=== PATIENT | female | born 1935 | race Caucasian/White ===

== ENCOUNTER → 2016-06-11 | Outpatient (CLI) | payer MEDICARE, BC ==
--- NOTE | 2016-06-14 09:18 | MM ---
Reason for exam: screening (asymptomatic). Last mammogram was performed 1 year ago. History: Patient is postmenopausal. Took estrogen for 18 years beginning at age 49. Physical Findings: A clinical breast exam by your physician is recommended on an annual basis and results should be correlated with mammographic findings. MG 3D Screening Mammo W/Cad Bilateral CC and MLO view(s) were taken. Prior study comparison: June 10, 2015, bilateral MG screening mammo w CAD. May 20, 2014, bilateral MG screening mammo w CAD. There are scattered fibroglandular densities. Benign calcifications. There is no discrete abnormality. No significant changes when compared with prior studies. ASSESSMENT: Benign, BI-RAD 2 RECOMMENDATION: Routine screening mammogram of both breasts in 1 year.
== END | disposition home or self-care (01) ==
LOC: RADMAMWWP 09:43
PROVIDERS: ATTEND Family Medicine
DX: Z12.31 Encounter for screening mammogram for malignant neoplasm of breast (principal)
CPT/HCPCS: 77063; G0202

== ENCOUNTER 2016-07-23 04:47 | Inpatient (IN) | payer MEDICARE, BC ==
--- NOTE | 2016-07-23 05:12 | ED ---
Abdominal Pain HPI - General Source: patient, RN notes reviewed Mode of arrival: wheelchair Limitations: no limitations - History of Present Illness MD Complaint: abdominal pain, other <Pascual Lange - Last Filed: 07/23/16 05:10> <Kaleb Ceja - Last Filed: 07/23/16 08:57> - General Chief Complaint: Abdominal Pain Stated Complaint: GI Bleed Time Seen by Provider: 07/23/16 05:00 - History of Present Illness Initial Comments: This is a 81-year-old female who states she had the onset at 12 midnight of crampy lower abdominal pain with some diarrhea she states that later however she started developing bright red blood per rectum. She states the cramps are 7 -8 tenths a history of hysterectomy cardiac disease with stents she does take Plavix and aspirin./10 severity she has some lightheadedness and dizziness associated with it. She also has some nausea. She has a history of diverticulitis she also some bleeding many years ago. (Pascual Lange) - Related Data Home Medications Medication Instructions Recorded Confirmed Brinzolamide [Azopt 1% Ophth Susp] 1 drop BOTH EYES BID 05/24/14 07/23/16 Enalapril Maleate 5 mg PO BID 05/24/14 07/23/16 Hydrocodone/Acetaminophen [[place] 1 - 2 tab PO Q6H PRN 05/24/14 07/23/16 5-325] Latanoprost 1 drop BOTH EYES HS 05/24/14 07/23/16 Metoprolol Tartrate [Lopressor] 25 mg PO BID 05/24/14 07/23/16 Omeprazole 40 mg PO BID 05/24/14 07/23/16 Stool Softner 1 tab PO DAILY PRN 05/24/14 07/23/16 rOPINIRole HCL [Requip] 1 mg PO HS 05/24/14 07/23/16 Aspirin [Adult Low Dose Aspirin EC] 81 mg PO DAILY 07/23/16 07/23/16 Atorvastatin [Lipitor] 20 mg PO HS 07/23/16 07/23/16 rOPINIRole HCL [Requip] 0.5 mg PO DAILY@1200 07/23/16 07/23/16 Previous Rx's Medication Instructions Recorded Clopidogrel [Plavix] 75 mg PO DAILY #30 tab 05/27/14 Isosorbide Mononitrate ER [Imdur] 60 mg PO DAILY #30 tab.er.24h 05/27/14 Nitroglycerin Sl Tabs [Nitrostat] 0.4 mg SUBLINGUAL Q5M PRN #25 tab 05/27/14 Allergies Allergy/AdvReac Type Severity Reaction Status Date / Time Iodinated Contrast Media - Allergy Unknown Verified 07/23/16 07:50 Oral and [Iodinated Contrast Media - IV Dye] shellfish derived [Shellfish] Allergy Dyspnea Verified 07/23/16 07:50 Sulfa (Sulfonamide Allergy Unknown Verified 07/23/16 07:50 Antibiotics) adhesive AdvReac Unknown Verified 07/23/16 07:50 Review of Systems ROS Other: All systems not noted in ROS Statement are negative. <Pascual Lange - Last Filed: 07/23/16 05:10> ROS Other: All systems not noted in ROS Statement are negative. <Kaleb Ceja - Last Filed: 07/23/16 08:57> ROS Statement: Those systems with pertinent positive or pertinent negative responses have been documented in the HPI. Past Medical History Past Medical History: Coronary Artery Disease (CAD), Fibromyalgia, GERD/Reflux, GI Bleed, Hyperlipidemia, Hypertension, Osteoarthritis (OA) Additional Past Medical History / Comment(s): LEAKY HEART VALVE, GLAUCOMA, GOUT , STOMACH ULCERS, THIN SKIN PRONE TO SKIN TEARS,RLS, POOR CIrCULATION, DIVERTICULTIS, wears partials upper nad lower not with pt at time of admit History of Any Multi-Drug Resistant Organisms: None Reported Past Surgical History: Bladder Surgery, Heart Catheterization With Stent, Hysterectomy Additional Past Surgical History / Comment(s): CATARACTS ÁNGEL Past Anesthesia/Blood Transfusion Reactions: No Reported Reaction Additional Past Anesthesia/Blood Transfusion Reaction / Comment(s): MILD CLAUSTERPHOBIA Date of Last Stent Placement:: UNK Past Psychological History: No Psychological Hx Reported Smoking Status: Former smoker Past Alcohol Use History: None Reported Additional Past Alcohol Use History / Comment(s): STARTED SMOKING AT AGE 19- SMOKED 2 PPD QUIT AT AGE 45 Past Drug Use History: None Reported - Past Family History Father Family Medical History: Cancer Additional Family Medical History / Comment(s): LUNG WITH METS Mother Family Medical History: Congestive Heart Failure (CHF), Myocardial Infarction ( [place]) <Pascual Lange - Last Filed: 07/23/16 05:10> General Exam Limitations: no limitations General appearance: alert, in no apparent distress Head exam: Present: atraumatic, normocephalic, normal inspection Eye exam: Present: normal appearance, PERRL, EOMI. Absent: scleral icterus, conjunctival injection, periorbital swelling ENT exam: Present: normal exam, mucous membranes moist Neck exam: Present: normal inspection. Absent: tenderness, meningismus, lymphadenopathy Respiratory exam: Present: normal lung sounds bilaterally. Absent: respiratory distress, wheezes, rales, rhonchi, stridor Cardiovascular Exam: Present: regular rate, normal rhythm, normal heart sounds. Absent: systolic murmur, diastolic murmur, rubs, gallop, clicks GI/Abdominal exam: Present: soft, tenderness (Mild left lower quadrant tenderness no guarding rebound masses or bruits), normal bowel sounds. Absent: distended, guarding, rebound, rigid Extremities exam: Present: normal inspection, full ROM, normal capillary refill. Absent: tenderness, pedal edema, joint swelling, calf tenderness Back exam: Present: normal inspection Neurological exam: Present: alert, oriented X3, CN II-XII intact Psychiatric exam: Present: normal affect, normal mood Skin exam: Present: warm, dry, intact, normal color. Absent: rash <Pascual Lange - Last Filed: 07/23/16 05:10> <Kaleb Ceja - Last Filed: 07/23/16 08:57> - General Exam Comments Initial Comments: This is a well-developed well-nourished awake alert oriented x3 female (Pascual Lange) Medical Decision Making <Pascual Lange - Last Filed: 07/23/16 05:10> - Lab Data Result diagrams: 07/23/16 05:09 07/23/16 05:09 - Radiology Data Radiology results: report reviewed (Computed tomography scan of the abdomen and pelvis does show probable colitis more than diverticulitis.), image reviewed ( KUB shows no signs of obstruction.) <Kaleb Ceja - Last Filed: 07/23/16 08:57> - Medical Decision Making Patient reevaluated and updated. Dr. Love was paged for admission for Dr. Smith. He is covering for Dr. ley. (Kaleb Ceja) - Lab Data Lab Results 04/21/17 04/21/17 04/21/17 Range/Units 05:09 05:09 05:09 WBC 15.2 H (3.8-10.6) k/uL RBC 5.01 (3.80-5.40) m/uL Hgb 14.3 (11.4-16.0) gm/dL Hct 44.2 (34.0-46.0) % MCV 88.3 (80.0-100.0) fL MCH 28.5 (25.0-35.0) pg MCHC 32.3 (31.0-37.0) g/dL RDW 13.7 (11.5-15.5) % Plt Count 196 (150-450) k/uL Neutrophils % 82 % Lymphocytes % 12 % Monocytes % 4 % Eosinophils % 1 % Basophils % 0 % Neutrophils # 12.5 H (1.3-7.7) k/uL Lymphocytes # 1.8 (1.0-4.8) k/uL Monocytes # 0.6 (0-1.0) k/uL Eosinophils # 0.1 (0-0.7) k/uL Basophils # 0.1 (0-0.2) k/uL PT 10.6 (9.0-12.0) sec INR 1.0 (<1.1) APTT 22.8 (22.0-30.0) sec Sodium 142 (137-145) mmol/L Potassium 4.3 (3.5-5.1) mmol/L Chloride 106 (98-107) mmol/L Carbon Dioxide 25 (22-30) mmol/L Anion Gap 11 mmol/L BUN 16 (7-17) mg/dL Creatinine 0.90 (0.52-1.04) mg/dL Est GFR (MDRD) Af Amer >60 (>60 ml/min/1.73 sqM) Est GFR (MDRD) Non-Af 60 (>60 ml/min/1.73 sqM) Glucose 113 H (74-99) mg/dL Calcium 9.7 (8.4-10.2) mg/dL Total Bilirubin 1.1 (0.2-1.3) mg/dL AST 27 (14-36) U/L ALT 28 (9-52) U/L Alkaline Phosphatase 96 (38-126) U/L Total Protein 7.0 (6.3-8.2) g/dL Albumin 4.3 (3.5-5.0) g/dL Amylase 122 H (30-110) U/L Lipase 71 (23-300) U/L Urine Color Urine Appearance (Clear) Urine pH (5.0-8.0) Ur Specific [place] (1.001-1.035) Urine Protein (Negative) Urine Glucose (UA) (Negative) Urine Ketones (Negative) Urine Blood (Negative) Urine Nitrite (Negative) Urine Bilirubin (Negative) Urine Urobilinogen (<2.0) mg/dL Ur Leukocyte Esterase (Negative) Urine RBC (0-5) /hpf Urine WBC (0-5) /hpf Ur Squamous Epith Cells (0-4) /hpf Amorphous Sediment (None) /hpf Urine Bacteria (None) /hpf Hyaline Casts (0-2) /lpf Urine Mucus (None) /hpf Stool Occult Blood (Negative) Blood Type Blood Type Recheck Antibody Screen Spec Expiration Date 07/23/16 07/23/16 07/23/16 Range/Units 05:09 05:22 05:26 WBC (3.8-10.6) k/uL RBC (3.80-5.40) m/uL Hgb (11.4-16.0) gm/dL Hct (34.0-46.0) % MCV (80.0-100.0) fL MCH (25.0-35.0) pg MCHC (31.0-37.0) g/dL RDW (11.5-15.5) % Plt Count (150-450) k/uL Neutrophils % % Lymphocytes % % Monocytes % % Eosinophils % % Basophils % % Neutrophils # (1.3-7.7) k/uL Lymphocytes # (1.0-4.8) k/uL Monocytes # (0-1.0) k/uL Eosinophils # (0-0.7) k/uL Basophils # (0-0.2) k/uL PT (9.0-12.0) sec INR (<1.1) APTT (22.0-30.0) sec Sodium (137-145) mmol/L Potassium (3.5-5.1) mmol/L Chloride (98-107) mmol/L Carbon Dioxide (22-30) mmol/L Anion Gap mmol/L BUN (7-17) mg/dL Creatinine (0.52-1.04) mg/dL Est GFR (MDRD) Af Amer (>60 ml/min/1.73 sqM) Est GFR (MDRD) Non-Af (>60 ml/min/1.73 sqM) Glucose (74-99) mg/dL Calcium (8.4-10.2) mg/dL Total Bilirubin (0.2-1.3) mg/dL AST (14-36) U/L ALT (9-52) U/L Alkaline Phosphatase (38-126) U/L Total Protein (6.3-8.2) g/dL Albumin (3.5-5.0) g/dL Amylase (30-110) U/L Lipase (23-300) U/L Urine Color Yellow Urine Appearance Cloudy H (Clear) Urine pH 5.5 (5.0-8.0) Ur Specific [place] 1.014 (1.001-1.035) Urine Protein Negative (Negative) Urine Glucose (UA) Negative (Negative) Urine Ketones Negative (Negative) Urine Blood Small H (Negative) Urine Nitrite Negative (Negative) Urine Bilirubin Negative (Negative) Urine Urobilinogen 2.0 (<2.0) mg/dL Ur Leukocyte Esterase Large H (Negative) Urine RBC 1 (0-5) /hpf Urine WBC 13 H (0-5) /hpf Ur Squamous Epith Cells 20 H (0-4) /hpf Amorphous Sediment Occasional H (None) /hpf Urine Bacteria Occasional H (None) /hpf Hyaline Casts 3 H (0-2) /lpf Urine Mucus Occasional H (None) /hpf Stool Occult Blood Positive H (Negative) Blood Type B Positive Blood Type Recheck No Antibody Screen NEGATIVE Spec Expiration Date 07/26/2016 - 2308 Disposition <Pascual Lange - Last Filed: 07/23/16 05:10> <Kaleb Ceja - Last Filed: 07/23/16 08:57> Clinical Impression: Lower GI hemorrhage Disposition: ADMITTED IP TO THIS HOSP
[2016-07-23 05:38] LABS: ALT 28 U/L (9-52); AST 27 U/L (14-36); Alkaline Phosphatase 96 U/L (38-126); Amylase 122 U/L (30-110); Anion Gap 11 mmol/L; Blood Urea Nitrogen 16 mg/dL (7-17); Calcium 9.7 mg/dL (8.4-10.2); Carbon Dioxide 25 mmol/L (22-30); Chloride 106 mmol/L (98-107); Glucose 113 mg/dL (74-99); Non-African American GFR(MDRD) 60 (>60 ml/min/1.73 sqM); Potassium 4.3 mmol/L (3.5-5.1); Sodium 142 mmol/L (137-145); Total Bilirubin 1.1 mg/dL (0.2-1.3)
[2016-07-23 05:39] LABS: Basophils # (A) 0.1 k/uL (0-0.2); Basophils % (A) 0 %; Eosinophils # (A) 0.1 k/uL (0-0.7); Eosinophils % (A) 1 %; HCT 44.2 % (34.0-46.0); HDW 2.88; HGB 14.3 gm/dL (11.4-16.0); Luc # (Auto) 0.12; Luc % (Auto) 1; Lymphocytes # (A) 1.8 k/uL (1.0-4.8); Lymphocytes % (A) 12 %; MCH 28.5 pg (25.0-35.0); MCHC 32.3 g/dL (31.0-37.0); MCV 88.3 fL (80.0-100.0); Mean Platelet Volume 6.8; Monocytes # (A) 0.6 k/uL (0-1.0); Monocytes % (A) 4 %; Neutrophils # (A) 12.5 k/uL (1.3-7.7); Neutrophils % (A) 82 %; RBC 5.01 m/uL (3.80-5.40); RDW 13.7 % (11.5-15.5); WBC 15.2 k/uL (3.8-10.6); WBC (Perox) 14.76
[2016-07-23 05:52] LABS: Partial Thromboplastin Time 22.8 sec (22.0-30.0); Prothrombin Time 10.6 sec (9.0-12.0)
--- NOTE | 2016-07-23 05:58 | XR ---
EXAM: XR Abdomen, 1 View. CLINICAL HISTORY: Reason: abdominal pain TECHNIQUE: Frontal upright view of the abdomen/pelvis. COMPARISON: No relevant prior studies available. FINDINGS: Lower thorax: Retrocardiac opacity containing air within, suggests the presence of a moderate size hiatal hernia. Intraperitoneal space: There is air seen within nondilated small bowel loops, and within the colon, the overall caliber of which is grossly normal on this single image. There is some air seen extending to the pelvis in the region the rectum. No free air is identified. No suspicious calcification seen within the abdomen or pelvis. Gastrointestinal tract: See above. Bones/joints: Mild levoscoliosis centered at L2 with multilevel degenerative changes throughout. IMPRESSION: No definite evidence of intestinal obstruction nor perforation seen, as above. Findings could be correlated and followed clinically; further imaging follow-up (e.g. CT) could be obtained if concern or symptoms persist.
[2016-07-23 06:06] LABS: Amorphous Sediment,Urine Occasional /hpf; Appearance,Urine Cloudy (Clear); Bacteria,Urine Occasional /hpf; Bilirubin,Urine Negative (Negative); Glucose,Urine (UA) Negative (Negative); Ketones,Urine Negative (Negative); Leukocyte Esterase,Urine Large (Negative); Mucus,Urine Occasional /hpf; Nitrite,Urine Negative (Negative); PH, Urine 5.5 (5.0-8.0); Particle Count 31932; Protein,Urine Negative (Negative); RBC,Urine 1 /hpf (0-5); Specific Gravity,Urine 1.014 (1.001-1.035); Squamous Epithelial Cell,Urine 20 /hpf (0-4); UA Billing (MACRO vs. MICRO) MICRO; WBC,Urine 13 /hpf (0-5)
--- NOTE | 2016-07-23 07:15 | CT ---
EXAMINATION TYPE: CT abdomen pelvis wo con DATE OF EXAM: 07/23/2016 6:50 AM COMPARISON: NONE HISTORY: 81-year-old female with pain, diarrhea and rectal bleeding CT DLP: 936 mGycm. Automated exposure control for dose reduction was used. TECHNIQUE: Contiguous axial scanning of the abdomen and pelvis without IV contrast. Coronal and sagit maryan reconstructions performed. FINDINGS: The heart is normal size without pericardial effusion. Coronary vessel calcifications are present in remarkable for coronary artery disease. Moderate to large hiatal hernia. Some hazy atelectasis in the peripheral left base. No pleural effusion. Noncontrast appearance of the liver, gallbladder, adrenal glands, right kidney, spleen with small pos terior splenule, and pancreas show no gross abnormality. There is a 3.4 cm cyst within the posterior mid to lower pole left kidney. Additional 2.9 cm cyst at the left lower pole. Scattered mild atherosclerotic calcifications within the abdominal aorta and iliac arteries. No dilated small bowel, free fluid, or free air. No mesenteric or retroperitoneal lymphadenopathy. Normal appendix. There is sigmoid diverticulosis but fairly long segment of moderate circumferential wall thickening and mild pericolonic inflammatory fat stranding extending from the distal sigmoid up to the mid descending colon. However, colon up to the splenic flexure shows mild wall thickening and some loss of the normal haustral pattern. Bladder is urine distended. Uterus surgically absent. Neither ovary clearly seen. No abnormal fluid c ollection in the pelvis. There is pelvic floor relaxation noted. Bones: Mild degenerative changes of the hips and left greater than right SI joints. Additional degene rated levoconvex scoliosis of the lumbar spine with multilevel spondylolistheses. IMPRESSION: 1. Nonspecific colitis extending from the splenic flexure to the distal sigmoid with more pronounced wall thickening and surrounding inflammation from the lower descending colon extending distally. Cor relate for infectious or inflammatory etiologies. 2. There is underlying sigmoid diverticulosis but the inflammation is not limited to this region whi ch argues against acute diverticulitis. 3. Moderate to large hiatal hernia, a couple left renal cysts, and pelvic floor relaxation.
[2016-07-23] MEDS ORDERED: NALOXONE 0.4 MG/ML 1 ML VIAL IV PRN (08:58)
[2016-07-23] MEDS ORDERED: MORPHINE SULFATE 4 MG/ML SYRINGE IV PRN (08:58)
[2016-07-23] MEDS: SODIUM CHLORIDE 0.9% 1,000 ML IV SCH ×2 (09:25→20:03)
[2016-07-23] MEDS: LEVOFLOXACIN 750MG-D5W PMX 750 MG in DEXTROSE/WATER 1 150ML.BAG IVPB SCH (09:37)
[2016-07-23] MEDS: PANTOPRAZOLE 40 MG/10 ML VIAL IV SCH (09:37)
[2016-07-23 15:24] LABS: Basophils % (A) 0 %; CH 28.9; CHCM 33.2; Eosinophils # (A) 0.1 k/uL (0-0.7); Eosinophils % (A) 0 %; HCT 42.1 % (34.0-46.0); HDW 2.98; HGB 14.2 gm/dL (11.4-16.0); Luc # (Auto) 0.17; Luc % (Auto) 1; Lymphocytes # (A) 2.2 k/uL (1.0-4.8); Lymphocytes % (A) 15 %; MCH 29.6 pg (25.0-35.0); MCHC 33.9 g/dL (31.0-37.0); MCV 87.5 fL (80.0-100.0); Mean Platelet Volume 7.1; Monocytes # (A) 0.8 k/uL (0-1.0); Monocytes % (A) 6 %; Neutrophils % (A) 78 %; RBC 4.81 m/uL (3.80-5.40); RDW 13.5 % (11.5-15.5); WBC 14.2 k/uL (3.8-10.6); WBC (Perox) 14.25
[2016-07-23] MEDS ORDERED: NITROGLYCERIN SL TABS 0.4 MG TAB SUBLINGUAL PRN (15:31)
[2016-07-23] MEDS ORDERED: TEMAZEPAM 15 MG CAP PO PRN (15:33)
[2016-07-23] MEDS ORDERED: ALPRAZolam 0.25 MG TAB PO PRN (15:33)
[2016-07-23] MEDS ORDERED: ACETAMINOPHEN TAB 500 MG TAB PO PRN (15:33)
[2016-07-23] MEDS ORDERED: HYDROcodone/APAP 5-325MG 1 EACH TAB PO PRN (15:36)
--- NOTE | 2016-07-23 17:03 | HP ---
DATE OF ADMISSION: 07/23/2016 CHIEF COMPLAINT: Lower GI bleeding. HISTORY OF PRESENT ILLNESS: This 81-year-old woman with a past medical history of multiple medical problems, including CAD, history of fibromyalgia, GERD, GI bleed, hypertension, hyperlipidemia, history of myocardial infarction, history of lower GI bleed, history of spinal stenosis, history of leaky valve, claustrophobia, being followed by Dr. Smith in the outpatient setting, had abdominal cramping last night. Subsequently patient had diarrhea. Subsequently patient also noted bright red blood per rectum. Patient had multiple episodes. Patient is also taking aspirin and Plavix. Because of concerns, patient came to [facility] and was admitted for further evaluation and treatment. Hemoglobin was found to be 14.3. There is no history of any fever, rigor, or chills. No history of any headache, loss of consciousness, seizures at this time. UA shows possible UTI. PAST MEDICAL HISTORY: 1. History of CAD, myocardial infarction. 2. History of fibromyalgia. 3. GERD. 4. GI bleed. 5. Hypertension. 6. Hyperlipidemia. 7. History of DJD. 8. History of vascular disorder. 9. Lower GI bleed. 10. Bladder surgery. 11. CAD, stent. Medications prior to admission include: 1. Stool softener 1 tablet daily p.r.n. 2. Nitrostat 0.4 sublingually p.r.n. 3. [place] 5 mg one to two tablets q.6 p.r.n. 4. Lipitor 20 mg at bedtime. 5. Requip 0.5 mg daily, 1 mg p.o. at bedtime. 6. Latanoprost 1 drop both eyes at bedtime. 7. Azopt 1% one drop both eyes b.i.d. 8. Imdur 60 mg p.o. daily. 9. Plavix 75 mg p.o. daily. 10. Omeprazole 40 mg p.o. b.i.d. 11. Enalapril maleate 5 mg p.o. b.i.d. 12. Lopressor 25 mg p.o. b.i.d. 13. Ecotrin 81 mg p.o. daily. ALLERGIES: 1. IODINATED CONTRAST DYE. 2. SHELLFISH. 3. SULFA. 4. ADHESIVES. FAMILY HISTORY: History of lung cancer in the family. SOCIAL HISTORY: Previous history of smoking. No history of alcohol intake. REVIEW OF SYSTEMS: ENT: No diminished hearing. No diminished vision. CARDIOVASCULAR SYSTEM: No angina, palpitations. RESPIRATORY SYSTEM: No cough, hemoptysis. GI: As mentioned earlier. : No dysuria. NERVOUS SYSTEM: No numbness or weakness. ALLERGY/IMMUNOLOGY: No asthma or hayfever. MUSCULOSKELETAL: As mentioned earlier. HEMATOLOGY/ONCOLOGY: No history of anemia. ENDOCRINE: No history of diabetes, hypothyroidism. CONSTITUTIONAL: As mentioned earlier. DERMATOLOGY: Negative. RHEUMATOLOGY: Negative. PSYCHIATRY: As mentioned earlier. PHYSICAL EXAMINATION: Patient is alert and oriented x3. Pulse 71, blood pressure 139/63, respiration 18, temperature 97 degrees, pulse ox 98% on room air. HEENT: Conjunctivae normal. Oral mucosa moist. NECK: No jugular venous distention. No carotid bruit. No lymph node enlargement. CARDIOVASCULAR SYSTEM: S1 normal. S2 normal. No S3. No S4. RESPIRATORY SYSTEM: Breath sounds diminished at the bases. A few scattered rhonchi. No crackles. ABDOMEN: Soft. Mild diffuse discomfort. No guarding. No rigidity. No mass palpable. Bowel sounds present. No ascites. No rigidity. LEGS: No edema. No swelling. NERVOUS SYSTEM: Higher functions as mentioned earlier. Moves all 4 limbs. No focal motor or sensory deficit. LYMPHATICS: No lymph node palpable in neck, axillae or groin. SKIN: No ulcer, rash, bleeding. LABS: WBC is 15.2. Neutrophils are 12.5. Glucose 113. Amylase 122. Lipase is 71. UA noted. ASSESSMENT: 1. Acute abdominal pain, lower gastrointestinal bleeding, possibly diverticulosis or acute diverticulitis. 2. Increased white count. 3. Possible urinary tract infection. 4. Increased random blood sugar. 5. Increased amylase with normal lipase. 6. Obesity; body mass index of 33.8. 7. History of coronary artery disease, myocardial infarction. 8. History of fibromyalgia. 9. History of gastroesophageal reflux disease. 10. History of gastrointestinal bleed. 11. History of hypertension. 12. History of hyperlipidemia. 13. History of degenerative joint disease. 14. History of gout. 15. History of peptic ulcer disease. 16. History of coronary artery disease and stent. 17. History of claustrophobia. 18. FULL CODE. RECOMMENDATIONS AND DISCUSSION: In this 81-year-old woman who presented with multiple complex medical issues, we will monitor the patient closely, continue the current medications. Will review the records from the peripheral hospital. Otherwise, I would also recommend holding aspirin and Plavix and continue to monitor. Repeat labs. Gastroenterology evaluation for the purpose of colonoscopy. I would also recommend a cardiology evaluation. Prognosis guarded. Further recommendations to follow. See orders for further details. A copy of this dictation is being forwarded to Dr. Smith, who is the primary physician.
[2016-07-23] MEDS: ATORVASTATIN 20 MG TAB PO SCH (20:21)
[2016-07-23] MEDS: LATANOPROST 0.005% OPHTH DROPS 2.5 ML BTL BOTH EYES SCH (20:21)
[2016-07-23] MEDS: DORZOLAMIDE HCL 2% DROPS 10 ML BTL BOTH EYES SCH (20:23)
[2016-07-23] MEDS: METOPROLOL TARTRATE 25 MG TAB PO SCH (20:24)
[2016-07-23] MEDS: HYDROcodone/APAP 5-325MG 1 EACH TAB PO PRN (20:25)
[2016-07-23] MEDS ORDERED: NON-FORMULARY DRUG (Omeprazole [Omeprazole] 40 MG) PO SCH (21:00)
[2016-07-24] MEDS: SODIUM CHLORIDE 0.9% 1,000 ML IV SCH ×2 (04:59→12:27)
[2016-07-24 07:30] LABS: Basophils % (A) 0 %; CH 28.7; CHCM 32.5; Eosinophils % (A) 0 %; HCT 39.7 % (34.0-46.0); HDW 2.73; HGB 12.9 gm/dL (11.4-16.0); Luc # (Auto) 0.15; Luc % (Auto) 1; Lymphocytes # (A) 1.9 k/uL (1.0-4.8); Lymphocytes % (A) 14 %; MCH 28.9 pg (25.0-35.0); MCHC 32.6 g/dL (31.0-37.0); MCV 88.9 fL (80.0-100.0); Monocytes # (A) 0.7 k/uL (0-1.0); Monocytes % (A) 5 %; Neutrophils # (A) 11.2 k/uL (1.3-7.7); Neutrophils % (A) 80 %; RBC 4.47 m/uL (3.80-5.40); RDW 13.6 % (11.5-15.5); WBC 13.9 k/uL (3.8-10.6); WBC (Perox) 14.75
[2016-07-24 07:47] LABS: Anion Gap 6 mmol/L; Blood Urea Nitrogen 10 mg/dL (7-17); Calcium 8.9 mg/dL (8.4-10.2); Carbon Dioxide 26 mmol/L (22-30); Chloride 108 mmol/L (98-107); Glucose 105 mg/dL (74-99); Non-African American GFR(MDRD) >60 (>60 ml/min/1.73 sqM); Potassium 3.9 mmol/L (3.5-5.1); Sodium 140 mmol/L (137-145)
[2016-07-24] MEDS: DORZOLAMIDE HCL 2% DROPS 10 ML BTL BOTH EYES SCH ×2 (08:35→21:07)
[2016-07-24] MEDS: PANTOPRAZOLE 40 MG/10 ML VIAL IV SCH (08:36)
[2016-07-24] MEDS: LEVOFLOXACIN 750MG-D5W PMX 750 MG in DEXTROSE/WATER 1 150ML.BAG IVPB SCH (08:36)
[2016-07-24] MEDS: METOPROLOL TARTRATE 25 MG TAB PO SCH ×2 (08:38→21:06)
[2016-07-24] MEDS: LISINOPRIL 20 MG TAB PO SCH (08:38)
[2016-07-24] MEDS: ISOSORBIDE MONONITRATE ER 60 MG TAB.ER.24H PO SCH (08:38)
[2016-07-24] MEDS: HYDROcodone/APAP 5-325MG 1 EACH TAB PO PRN (08:40)
[2016-07-24] MEDS: metroNIDAZOLE-NS PMX 500 MG in SALINE 1 100ML.BAG IVPB SCH ×3 (12:26→23:10)
--- NOTE | 2016-07-24 18:27 | P.CRDCN ---
History of Present Illness Consult date: 07/24/16 History of present illness: This is a 81-year-old female with history of ischemic heart disease with previous stent placement who follows with Dr. Damico regularly. Patient had stent placement of the RCA in 2014 and failed stent placement of the OM branch. Patient has been stable since then. Patient was actually seen by Dr. Damico about a week ago. She was advised to stop the Plavix after the current supplies finished. Patient is now admitted to the hospital with abdominal pain and rectal bleeding. Patient was taken of the Plavix. Currently patient is pain-free and hasn't been having any more bleeding. Patient was seen by Dr. Hernandez and is going to watch her until Tuesday to see if she has any recurrence of bleeding. She denies any chest pain or shortness of breath. She could be continued only on baby aspirin. Further recommendation will depend upon the clinical course Review of Systems REVIEW OF SYSTEMS: CONSTITUTIONAL:. Patient is doing well. No complaints of fever or chills EYES: Denies diplopia, blurring of vision EARS, NOSE, MOUTH, THROAT: Denies headaches, denies sore throat. CARDIOVASCULAR: Denies chest pain, denies shortness of breath, denies palpitations RESPIRATORY: Denies shortness of breath, denies cough. GASTROINTESTINAL: As per HPI GENITOURINARY: Denies hematuria, denies infections. MUSKULOSKELETAL: Denies pain, denies swelling. Denies any cramps or claudication INTEGUMENTARY: Denies rash, denies eczema. NEUROLOGICAL: Denies focal weakness, or visual disturbance. Denies any dizziness or syncope PSYCHIATRIC: Denies anxiety, denies depression. HEMATOLOGIC/LYMPHATIC: Denies any bleeding, denies enlarged lymph nodes. Past Medical History Past Medical History: Coronary Artery Disease (CAD), Eye Disorder, Fibromyalgia , GERD/Reflux, GI Bleed, Hyperlipidemia, Hypertension, Myocardial Infarction ([place] ), Osteoarthritis (OA), Vascular Disorder Additional Past Medical History / Comment(s): LOWER GI BLEED, ANEMIA, SPINAL STENOSIS, LEAKY HEART VALVE, BILATERAL GLAUCOMA, PAST GOUT IN BILATERAL FEET, PUD, THIN SKIN PRONE TO SKIN TEARS, RLS, PAD, DIVERTICULTIS, BRONCHITIS, SINUS PROBLEMS. Last Myocardial Infarction Date:: 05/24/14 History of Any Multi-Drug Resistant Organisms: None Reported Past Surgical History: Bladder Surgery, Heart Catheterization With Stent, Hysterectomy, Orthopedic Surgery Additional Past Surgical History / Comment(s): 05/24/14 PCI WITH STENTS TO RCA/ OM1, 2006 PCI WITH STENT, CYSTOCELE/RECTOCELE, R CARPAL TUNNEL RELEASE, EGD/ COLONOSCOPIES, BACK INJECTIONS, CATARACTS REMOVED WITH LENS IMPLANTS ÁNGEL Past Anesthesia/Blood Transfusion Reactions: No Reported Reaction Additional Past Anesthesia/Blood Transfusion Reaction / Comment(s): MILD CLAUSTERPHOBIA Date of Last Stent Placement:: 05/24/14 Past Psychological History: No Psychological Hx Reported Additional Psychological History / Comment(s): 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 SHE DRIVES. Smoking Status: Former smoker Past Alcohol Use History: None Reported Additional Past Alcohol Use History / Comment(s): STARTED SMOKING AT AGE 19- SMOKED 2 PPD QUIT AT AGE 45 Past Drug Use History: None Reported - Past Family History Father Family Medical History: Cancer Additional Family Medical History / Comment(s): LUNG CANCER WITH METS- OF THIS AT THE AGE OF 75YRS. Mother Family Medical History: Congestive Heart Failure (CHF), Myocardial Infarction ( [place]) Additional Family Medical History / Comment(s): MOTHER OF A 2ND [place] AT THE AGEOF 72YRS. Medications and Allergies Home Medications Medication Instructions Recorded Confirmed Type Brinzolamide [Azopt 1% Ophth Susp] 1 drop BOTH EYES BID 05/24/14 07/23/16 History Enalapril Maleate 5 mg PO BID 05/24/14 07/23/16 History Hydrocodone/Acetaminophen [Richardson 1 - 2 tab PO Q6H PRN 05/24/14 07/23/16 History 5-325] Latanoprost 1 drop BOTH EYES HS 05/24/14 07/23/16 History Metoprolol Tartrate [Lopressor] 25 mg PO BID 05/24/14 07/23/16 History Omeprazole 40 mg PO BID 05/24/14 07/23/16 History Stool Softner 1 tab PO DAILY PRN 05/24/14 07/23/16 History rOPINIRole HCL [Requip] 1 mg PO HS 05/24/14 07/23/16 History Aspirin [Adult Low Dose Aspirin EC] 81 mg PO DAILY 07/23/16 07/23/16 History Atorvastatin [Lipitor] 20 mg PO HS 07/23/16 07/23/16 History rOPINIRole HCL [Requip] 0.5 mg PO DAILY@1200 07/23/16 07/23/16 History Allergies Allergy/AdvReac Type Severity Reaction Status Date / Time Iodinated Contrast Media - Allergy Unknown Verified 07/23/16 07:50 Oral and [Iodinated Contrast Media - IV Dye] levofloxacin [From Levaquin] Allergy Rash/Hives Verified 07/24/16 16:50 shellfish derived [Shellfish] Allergy Dyspnea Verified 07/23/16 07:50 Sulfa (Sulfonamide Allergy Unknown Verified 07/23/16 07:50 Antibiotics) adhesive AdvReac Unknown Verified 07/23/16 07:50 Physical Exam Vitals: Vital Signs Temp Pulse Resp BP Pulse Ox 07/24/16 15:47 98 16 07/24/16 15:00 96.1 F L 104 H 16 103/58 91 L 07/24/16 08:00 67 16 07/24/16 07:00 96.3 F L 67 16 148/68 95 07/23/16 22:49 98.6 F 68 17 105/46 96 07/23/16 20:23 79 18 132/70 96 Intake and Output 07/24/16 07/24/16 07/24/16 06:59 14:59 22:59 Intake Total 875 Balance 875 Intake: IV 875 Levofloxacin 750Mg-D5w 35 Pmx 750 mg In Dextrose/ Water 1 150ml.bag @ 100 mls/hr IVPB Q24H [facility] Rx#: [id number] Sodium Chloride 0.9% 1, 740 000 ml @ 110 mls/hr IV . Q9H6M [facility] Rx#:[id number] metroNIDAZOLE-NS PMX 500 100 mg In Saline 1 100ml.bag @ 100 mls/hr IVPB Q8HR [facility] Rx#:[id number] Other: # Voids 3 1 1 # Bowel Movements 1 GENERAL EXAM: Patient is alert and oriented and doesn't appear to be in any acute distress HEENT: Normocephalic. Normal reaction of pupils, equal size, normal range of extraocular motion. No erythema or exudates in the throat. NECK: No masses, no nuchal rigidity. CHEST: No chest wall deformity. LUNGS: Equal air entry with no crackles or wheeze. HEART: S1 and S2 normal with no audible mumurs or gallops. Regular rhythm, femorals equal on both sides.. ABDOMEN: No hepatosplenomegaly, normal bowel sounds, no guarding or rigidity. SKIN: No rashes CENTRAL NERVOUS SYSTEM: No focal deficits. EXTREMITIES: No cyanosis, clubbing or edema. Results 07/24/16 06:49 07/24/16 06:49 CBC 07/24/16 Range/Units 06:49 WBC 13.9 H (3.8-10.6) k/uL RBC 4.47 (3.80-5.40) m/uL Hgb 12.9 (11.4-16.0) gm/dL Hct 39.7 (34.0-46.0) % Plt Count 150 (150-450) k/uL Comprehensive Metabolic Panel 07/24/16 Range/Units 06:49 Sodium 140 (137-145) mmol/L Potassium 3.9 (3.5-5.1) mmol/L Chloride 108 H (98-107) mmol/L Carbon Dioxide 26 (22-30) mmol/L BUN 10 (7-17) mg/dL Creatinine 0.78 (0.52-1.04) mg/dL Glucose 105 H (74-99) mg/dL Calcium 8.9 (8.4-10.2) mg/dL Current Medications Generic Name Dose Route Start Last Admin Trade Name Freq PRN Reason Stop Dose Admin Acetaminophen 500 mg 07/23/16 15:33 Tylenol Tab PO Q6HR PRN Fever and/ or Mild Pain Hydrocodone Bitart/Acetaminophen 1 each 07/23/16 15:31 07/24/16 08:40 Richardson 5-325 PO 1 each Q6H PRN Administration Moderate Pain Hydrocodone Bitart/Acetaminophen 2 each 07/23/16 15:36 Richardson 5-325 PO Q6H PRN Severe Pain Alprazolam 0.25 mg 07/23/16 15:33 Xanax PO TID PRN Anxiety Atorvastatin Calcium 20 mg 07/23/16 21:00 07/23/16 20:21 Lipitor PO 20 mg HS [facility] Administration Dorzolamide HCl 1 drops 07/23/16 21:00 07/24/16 08:35 Trusopt BOTH EYES 1 drops BID [facility] Administration Heparin Sodium (Porcine) 5,000 unit 07/24/16 21:00 Heparin SQ Q12HR [facility] Sodium Chloride 1,000 mls @ 110 mls/hr 07/23/16 09:00 07/24/16 12:27 Saline 0.9% IV 110 mls/hr .Q9H6M [facility] Administration Metronidazole 500 mg/ IV 100 mls @ 100 mls/hr 07/24/16 12:30 07/24/16 17:24 Solution IVPB 100 mls/hr Q8HR [facility] Administration Piperacillin/Tazobactam/ 50 mls @ 12.5 mls/hr 07/24/16 17:00 Dextrose 3.375 gm/ IV Solution IVPB Q8HR [facility] Isosorbide Mononitrate 60 mg 07/24/16 09:00 07/24/16 08:38 Imdur PO 60 mg DAILY [facility] Administration Latanoprost 1 drops 07/23/16 21:00 07/23/16 20:21 Xalatan 0.005% BOTH EYES 1 drops HS [facility] Administration Lisinopril 20 mg 07/24/16 09:00 07/24/16 08:38 Zestril PO 20 mg DAILY [facility] Administration Metoprolol Tartrate 25 mg 07/23/16 21:00 07/24/16 08:38 Lopressor PO 25 mg BID [facility] Administration Morphine Sulfate 4 mg 07/23/16 08:58 Morphine Sulfate (Inj) IV Q4HR PRN Severe Pain Naloxone HCl 0.2 mg 07/23/16 08:58 Narcan IV Q2M PRN Opioid Reversal Nitroglycerin 0.4 mg 07/23/16 15:31 Nitrostat SUBLINGUAL Q5M PRN Chest Pain Pantoprazole Sodium 40 mg 07/23/16 09:00 07/24/16 08:36 Protonix IV 40 mg DAILY [facility] Administration Ropinirole HCl 0.5 mg 07/24/16 12:00 07/24/16 12:29 Requip PO 0.5 mg DAILY@1200 [facility] Administration Ropinirole HCl 1 mg 07/23/16 21:00 07/23/16 20:24 Requip PO 1 mg HS [facility] Administration Temazepam 15 mg 07/23/16 15:33 Restoril PO HS PRN Insomnia Intake and Output 07/24/16 07/24/16 07/24/16 06:59 14:59 22:59 Intake Total 875 Balance 875 Intake: IV 875 Levofloxacin 750Mg-D5w 35 Pmx 750 mg In Dextrose/ Water 1 150ml.bag @ 100 mls/hr IVPB Q24H [facility] Rx#: [id number] Sodium Chloride 0.9% 1, 740 000 ml @ 110 mls/hr IV . Q9H6M [facility] Rx#:[id number] metroNIDAZOLE-NS PMX 500 100 mg In Saline 1 100ml.bag @ 100 mls/hr IVPB Q8HR [facility] Rx#:[id number] Other: # Voids 3 1 1 # Bowel Movements 1 07/24/16 06:49 07/24/16 06:49 Assessment and Plan (1) Lower GI hemorrhage Status: Acute (2) HTN (hypertension) Status: Acute (3) Hyperlipemia Status: Acute (4) Ischemic heart disease Status: Acute (5) S/P right coronary artery (RCA) stent placement Status: Acute Plan: Patient's abdominal pain improved. She is not having any rectal bleeding. It' s okay to hold Plavix at this time and continue only with aspirin. No chest pains or shortness of breath. Continue the rest of the medication. Will follow
[2016-07-24] MEDS: PIPERACILLIN-TAZOBACTAM 3.375 GM in DEXTROSE/WATER 1 50ML.BAG IVPB SCH (18:49)
[2016-07-24] MEDS: ATORVASTATIN 20 MG TAB PO SCH (21:07)
[2016-07-24] MEDS: LATANOPROST 0.005% OPHTH DROPS 2.5 ML BTL BOTH EYES SCH (21:07)
[2016-07-24] MEDS: HEPARIN SODIUM,PORCINE 5,000 UNIT/ML 1 ML VIAL SQ SCH (21:09)
[2016-07-25] MEDS: PIPERACILLIN-TAZOBACTAM 3.375 GM in DEXTROSE/WATER 1 50ML.BAG IVPB SCH ×3 (00:35→18:30)
[2016-07-25] MEDS: SODIUM CHLORIDE 0.9% 1,000 ML IV SCH ×4 (02:53→23:14)
--- NOTE | 2016-07-25 08:05 | PN ---
DATE OF SERVICE: 07/24/2016 This 81-year-old woman was admitted with acute lower GI bleed, also had abdominal pain. The patient underwent a CAT scan of the abdomen and pelvis this morning, which showed extensive, nonspecific colitis extending from splenic flexure, distal sigmoid with more pronounced wall thickening and surrounding inflammation from the lower descending colon extending distally. Infectious inflammatory colitis recommended. The patient also had underlying sigmoid diverticulosis but information is limited to the above region. The patient also had moderate large hiatal hernia also. Dr. Jensen is following the patient closely. Hemoglobin is 12.9 down from 14.2, white count, elevated 13.9. The patient apparently had ALLERGY TO LEVAQUIN also. PAST MEDICAL HISTORY: Reviewed. REVIEW OF SYSTEMS: CARDIOVASCULAR: No angina. RESPIRATORY: As mentioned. GI: As mentioned earlier. : No dysuria. NERVOUS SYSTEM: No numbness or weakness. Current medications are reviewed and include: 1. Tylenol 500 mg q.6 p.r.n. 2. Newman 5 mg. 3. Xanax 0.2 t.i.d. 4. Lipitor. 5. Cosopt. 6. Imdur. 7. Xalatan. 8. Zestril. 9. Lopressor. 10. Flagyl. 11. Narcan. 12. Nitrostat. 13. Protonix. 14. Requip. 15. Restoril. PHYSICAL EXAMINATION: Patient is alert and oriented x3. Pulse 104, blood pressure 100/58, respirations 16, temperature 96.1, pulse ox 99% on room air. HEENT: Conjunctivae normal. NECK: No jugular venous distention. CARDIOVASCULAR: S1 and S2, muffled. RESPIRATORY: Breath sounds diminished at the bases. No rhonchi, no crackles. ABDOMEN: Soft. Mild diffuse discomfort on palpation. No guarding, no rigidity. No mass palpable. LEGS: No edema, no swelling. NERVOUS SYSTEM: No focal deficits. LABS: WBC 13.9. Hemoglobin 12.9. UA noted. ASSESSMENT: 1. Acute abdominal pain, lower gastrointestinal bleeding, possibly acute colitis extensive as mentioned earlier. 2. Increased WBC. 3. Diverticulosis on the CT scan. 4. Urinary tract infection. 5. Increased random blood sugar. 6. Increased amylase and normal lipase. 7. Obesity with body mass index of 33.8. 8. History of coronary artery disease, myocardial infarction. 9. History of fibromyalgia. 10. History of gastroesophageal reflux disease. 11. History of gastrointestinal bleed. 12. History of hypertension, essential. 13. History of hyperlipidemia. 14. History of degenerative joint disease. 15. History of gout. 16. History of peptic ulcer disease. 17. History of coronary artery disease and stent. 18. History of claustrophobia, 19. FULL CODE. RECOMMENDATIONS AND DISCUSSION: I recommend to continue the current medications, continue monitoring and symptomatic treatment. At this time I also recommend add broad-spectrum IV antibiotics along with Flagyl. Continue the rest of the medications. Discussed with Dr. Jensen. Continue to monitor. The family is not keen on obtaining colonoscopy at this time because of the patient's age and other factors. Will continue to treat the patient medically and continue to monitor. Discussed with family and DVT prophylaxis. Further recommendations to follow.
[2016-07-25] MEDS: PANTOPRAZOLE 40 MG/10 ML VIAL IV SCH (08:20)
[2016-07-25] MEDS: HEPARIN SODIUM,PORCINE 5,000 UNIT/ML 1 ML VIAL SQ SCH ×2 (08:20→21:04)
[2016-07-25] MEDS: DORZOLAMIDE HCL 2% DROPS 10 ML BTL BOTH EYES SCH ×2 (08:21→21:05)
[2016-07-25] MEDS: ISOSORBIDE MONONITRATE ER 60 MG TAB.ER.24H PO SCH (08:21)
[2016-07-25] MEDS: METOPROLOL TARTRATE 25 MG TAB PO SCH ×2 (08:21→21:03)
[2016-07-25] MEDS: LISINOPRIL 20 MG TAB PO SCH (08:22)
[2016-07-25] MEDS: metroNIDAZOLE-NS PMX 500 MG in SALINE 1 100ML.BAG IVPB SCH ×3 (08:22→23:19)
[2016-07-25] MEDS: HYDROcodone/APAP 5-325MG 1 EACH TAB PO PRN ×2 (08:33→23:54)
[2016-07-25 08:43] LABS: Basophils # (A) 0.1 k/uL (0-0.2); Basophils % (A) 1 %; CH 28.7; CHCM 31.3; Eosinophils # (A) 0.2 k/uL (0-0.7); Eosinophils % (A) 2 %; HCT 37.3 % (34.0-46.0); HDW 2.77; HGB 11.6 gm/dL (11.4-16.0); Hypochromasia Slight; Luc % (Auto) 1; Lymphocytes # (A) 1.8 k/uL (1.0-4.8); Lymphocytes % (A) 17 %; MCH 28.6 pg (25.0-35.0); MCHC 31.1 g/dL (31.0-37.0); Mean Platelet Volume 7.5; Monocytes # (A) 0.4 k/uL (0-1.0); Monocytes % (A) 3 %; Neutrophils # (A) 7.9 k/uL (1.3-7.7); Neutrophils % (A) 76 %; RBC 4.05 m/uL (3.80-5.40); RDW 13.5 % (11.5-15.5); WBC 10.3 k/uL (3.8-10.6); WBC (Perox) 11.14
[2016-07-25 08:59] LABS: Anion Gap 10 mmol/L; Blood Urea Nitrogen 7 mg/dL (7-17); Calcium 8.6 mg/dL (8.4-10.2); Carbon Dioxide 23 mmol/L (22-30); Chloride 108 mmol/L (98-107); Glucose 188 mg/dL (74-99); Non-African American GFR(MDRD) >60 (>60 ml/min/1.73 sqM); Potassium 3.3 mmol/L (3.5-5.1); Sodium 141 mmol/L (137-145)
--- NOTE | 2016-07-25 10:46 | P.CONS ---
History of Present Illness - Reason for Consult Consult date: 07/24/16 Rectal bleeding - History of Present Illness The patient is an 81-year-old female who states she had the onset of crampy lower abdominal pain at [place] early on the day of admission, yesterday, with diarrhea that later turned bright red blood in color. The patient continued to have bleeding after admission which appears to be tapering down this morning. She described some lightheadedness and dizziness initially, now feeling better. She also had some nausea. She apparently had courtney stew that evening, which she has prepared in the past and kept it refrigerated. CT of the abdomen performed in the emergency room showed nonspecific colitis extending from the splenic flexure to the distal sigmoid. There is also sigmoid diverticulosis noted. The patient has history of atherosclerosis including coronary atherosclerotic heart disease and prior stent placements. She has been on aspirin and Plavix. She has seen her product expert within the last week or so and the plan was to stop her Plavix once her current supply is exhausted. The patient was sent count on admission was 14.2 and this morning is still elevated at 13.9. The patient was started on Levaquin and has developed a rash this morning. Levaquin has been discontinued and she will be given Flagyl instead. Her hemoglobin was 14.2 on admission it is 12.6 this morning. Review of Systems Constitutional: Denied fever or chills. Lost 30 pounds since November 2015 Neurologic: No headaches, double vision or other sensory or motor changes Cardiopulmonary: No chest pains, shortness of breath or palpitations. History of HTN and CAHD Gastrointestinal: See present illness above Genitourinary: No hematuria, dysuria or frequency Skin: No rashes Endocrine: No history of diabetes or thyroid disease Musculoskeletal: History of OA and fibromyalgia Hematologic: No anemia or bleeding tendency Psychiatric: No anxiety, has history of depression Past Medical History Past Medical History: Coronary Artery Disease (CAD), Eye Disorder, Fibromyalgia , GERD/Reflux, GI Bleed, Hyperlipidemia, Hypertension, Myocardial Infarction ([place] ), Osteoarthritis (OA), Vascular Disorder Additional Past Medical History / Comment(s): LOWER GI BLEED, ANEMIA, SPINAL STENOSIS, LEAKY HEART VALVE, BILATERAL GLAUCOMA, PAST GOUT IN BILATERAL FEET, PUD, THIN SKIN PRONE TO SKIN TEARS, RLS, PAD, DIVERTICULTIS, BRONCHITIS, SINUS PROBLEMS. Last Myocardial Infarction Date:: 05/24/14 History of Any Multi-Drug Resistant Organisms: None Reported Past Surgical History: Bladder Surgery, Heart Catheterization With Stent, Hysterectomy, Orthopedic Surgery Additional Past Surgical History / Comment(s): 05/24/14 PCI WITH STENTS TO RCA/ OM1, 2006 PCI WITH STENT, CYSTOCELE/RECTOCELE, R CARPAL TUNNEL RELEASE, EGD/ COLONOSCOPIES, BACK INJECTIONS, CATARACTS REMOVED WITH LENS IMPLANTS ÁNGEL Past Anesthesia/Blood Transfusion Reactions: No Reported Reaction Additional Past Anesthesia/Blood Transfusion Reaction / Comm: MILD CLAUSTERPHOBIA Date of Last Stent Placement:: 05/24/14 Past Psychological History: No Psychological Hx Reported Additional Psychological History / Comment(s): 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 SHE DRIVES. Smoking Status: Former smoker Past Alcohol Use History: None Reported Additional Past Alcohol Use History / Comment(s): STARTED SMOKING AT AGE 19- SMOKED 2 PPD QUIT AT AGE 45 Past Drug Use History: None Reported - Past Family History Father Family Medical History: Cancer Additional Family Medical History / Comment(s): LUNG CANCER WITH METS- OF THIS AT THE AGE OF 75YRS. Mother Family Medical History: Congestive Heart Failure (CHF), Myocardial Infarction ( [place]) Additional Family Medical History / Comment(s): MOTHER OF A 2ND [place] AT THE AGEOF 72YRS. Medications and Allergies Home Medications Medication Instructions Recorded Confirmed Type Brinzolamide [Azopt 1% Ophth Susp] 1 drop BOTH EYES BID 05/24/14 07/23/16 History Enalapril Maleate 5 mg PO BID 05/24/14 07/23/16 History Hydrocodone/Acetaminophen [[place] 1 - 2 tab PO Q6H PRN 05/24/14 07/23/16 History 5-325] Latanoprost 1 drop BOTH EYES HS 05/24/14 07/23/16 History Metoprolol Tartrate [Lopressor] 25 mg PO BID 05/24/14 07/23/16 History Omeprazole 40 mg PO BID 05/24/14 07/23/16 History Stool Softner 1 tab PO DAILY PRN 05/24/14 07/23/16 History rOPINIRole HCL [Requip] 1 mg PO HS 05/24/14 07/23/16 History Aspirin [Adult Low Dose Aspirin EC] 81 mg PO DAILY 07/23/16 07/23/16 History Atorvastatin [Lipitor] 20 mg PO HS 07/23/16 07/23/16 History rOPINIRole HCL [Requip] 0.5 mg PO DAILY@1200 07/23/16 07/23/16 History Allergies Allergy/AdvReac Type Severity Reaction Status Date / Time Iodinated Contrast Media - Allergy Unknown Verified 07/23/16 07:50 Oral and [Iodinated Contrast Media - IV Dye] levofloxacin [From Levaquin] Allergy Rash/Hives Verified 07/24/16 16:50 shellfish derived [Shellfish] Allergy Dyspnea Verified 07/23/16 07:50 Sulfa (Sulfonamide Allergy Unknown Verified 07/23/16 07:50 Antibiotics) adhesive AdvReac Unknown Verified 07/23/16 07:50 Physical Exam Vitals: Vital Signs Temp Pulse Resp BP Pulse Ox 07/24/16 08:00 67 16 07/24/16 07:00 96.3 F L 67 16 148/68 95 07/23/16 22:49 98.6 F 68 17 105/46 96 07/23/16 20:23 79 18 132/70 96 07/23/16 14:50 97.0 F L 71 18 139/66 98 Intake and Output 07/23/16 07/24/16 07/24/16 22:59 06:59 14:59 Intake Total 875 Balance 875 Intake: IV 875 Levofloxacin 750Mg-D5w 35 Pmx 750 mg In Dextrose/ Water 1 150ml.bag @ 100 mls/hr IVPB Q24H [facility] Rx#: [id number] Sodium Chloride 0.9% 1, 740 000 ml @ 110 mls/hr IV . Q9H6M [facility] Rx#:[id number] metroNIDAZOLE-NS PMX 500 100 mg In Saline 1 100ml.bag @ 100 mls/hr IVPB Q8HR [facility] Rx#:[id number] Other: # Voids 2 3 1 # Bowel Movements 1 1 General: Appears stated age, very pleasant in no acute distress Head and neck: Normocephalic and atraumatic, conjunctivae pink and sclerae not icteric. No masses in the neck or tracheal shifts. No adenopathy or thyromegaly Lungs: Clear to auscultation with no dullness to percussion Heart: Regular, no abnormal sounds, murmurs, gallops or friction rubs Abdomen: Soft, no masses or organomegalies or tenderness. Bowel sounds present Extremities: No clubbing, cyanosis or edema Neurologic: Alert and oriented 3. Cranial nerves grossly intact, no gross sensory or motor abnormalities Results CBC & Chem 7: 07/25/16 08:30 07/25/16 08:30 Labs: Abnormal Lab Results - Last 24 Hours (Table) 07/23/16 07/24/16 07/24/16 Range/Units 15:04 06:49 06:49 WBC 14.2 H 13.9 H (3.8-10.6) k/uL Neutrophils # 11.0 H 11.2 H (1.3-7.7) k/uL Chloride 108 H (98-107) mmol/L Glucose 105 H (74-99) mg/dL Assessment and Plan Plan: The presentation of this patient is consistent with infectious or self-limited colitis. The possibility of ischemic colitis should be considered with her history of atherosclerosis and the area of abnormality on CT. The patient appears to be improving. I agree with her current management. The patient had colonoscopy within the last few years. I would consider repeating this exam as outpatient depending on her course. Certainly, if her bleeding continues or her condition changes, I would consider that during this hospitalization. I will discuss with you and follow with you with interest.
[2016-07-25] MEDS ORDERED: POTASSIUM CHLORIDE ER 20 MEQ TAB.ER PO STA (13:15)
[2016-07-25] MEDS: ATORVASTATIN 20 MG TAB PO SCH (21:03)
[2016-07-25] MEDS: LATANOPROST 0.005% OPHTH DROPS 2.5 ML BTL BOTH EYES SCH (21:06)
[2016-07-26] MEDS: PIPERACILLIN-TAZOBACTAM 3.375 GM in DEXTROSE/WATER 1 50ML.BAG IVPB SCH ×2 (01:28→10:56)
--- NOTE | 2016-07-26 06:08 | PN ---
DATE OF SERVICE: 07/25/2016 This 81-year-old woman who was admitted with acute GI bleed, also had features of colitis. The patient is on broad-spectrum IV antibiotics. The patient is not extremely keen on having a colonoscopy at this time. No chest pain or palpitations. No fever. Gastroenterology is following the patient closely. On exam, alert and oriented x3. Pulse is 64, blood pressure 128/78, respirations 16, temperature 96.5, pulse ox 98% on room air. HEENT: Conjunctivae normal. NECK: No jugular venous distention. CARDIOVASCULAR: S1 and S2, muffled. RESPIRATORY: Breath sounds diminished at the bases. No rhonchi, no crackles. ABDOMEN: Soft. Minimal diffuse discomfort. No guarding or rigidity noted. Bowel sounds present. LEGS: No edema, no swelling. NERVOUS SYSTEM: No focal deficits. LABS: WBC 10.3. Sodium 141, potassium 3.3. ASSESSMENT: 1. Acute abdominal pain with lower GI bleeding, possible acute colitis, extensive as mentioned earlier. 2. Increased WBC. 3. Diverticulosis on the CT scan. 4. Urinary tract infection. 5. Increased random blood sugar. 6. Increased amylase and normal lipase. 7. Obesity with body mass index of 33.8. 8. History of coronary artery disease, myocardial infarction. 9. History of fibromyalgia. 10. History of gastroesophageal reflux disease. 11. History of gastrointestinal bleed. 12. Hypertension, essential. 13. Hyperlipidemia. 14. History of degenerative joint disease. 15. History of gout. 16. History of peptic ulcer disease. 17. History of coronary artery disease, stent. 18. History of claustrophobia. 19. FULL CODE. RECOMMENDATIONS AND DISCUSSION: In this 81-year-old woman who presented with multiple complex medical issues. Will monitor the patient closely. Continue the current medications. Continue symptomatic treatment. Otherwise, at this time I would recommend broad-spectrum IV antibiotics, potassium supplementation, advance diet. Closely follow with gastroenterology. Further recommendations to follow.
[2016-07-26 07:52] VITALS: BP 154/69; RESP 18; TEMP 96.3
[2016-07-26] MEDS ORDERED: LEVOFLOXACIN 750 MG TAB PO SCH (09:00)
[2016-07-26 09:03] LABS: Basophils % (A) 1 %; CH 28.8; CHCM 32.3; Eosinophils # (A) 0.3 k/uL (0-0.7); Eosinophils % (A) 4 %; HDW 2.98; HGB 11.7 gm/dL (11.4-16.0); Luc # (Auto) 0.08; Luc % (Auto) 1; Lymphocytes # (A) 1.6 k/uL (1.0-4.8); Lymphocytes % (A) 23 %; MCH 29.8 pg (25.0-35.0); MCHC 33.4 g/dL (31.0-37.0); MCV 89.4 fL (80.0-100.0); Mean Platelet Volume 7.2; Monocytes # (A) 0.3 k/uL (0-1.0); Monocytes % (A) 4 %; Neutrophils # (A) 4.7 k/uL (1.3-7.7); Neutrophils % (A) 67 %; RBC 3.92 m/uL (3.80-5.40); RDW 13.2 % (11.5-15.5); WBC (Perox) 7.66
--- NOTE | 2016-07-26 09:07 | P.PN ---
Subjective Principal diagnosis: lower GI bleed 81-year-old female admitted with crampy lower abdominal pain with bloody stools. Patient had a brown colored vomitus morning. Denies abdominal pain. Tolerating diet. Anticipating discharge. Last colonoscopy several years ago. Objective - Vital Signs Vital signs: Vital Signs Temp 96.3 F L 07/26/16 07:00 Pulse 59 L 07/26/16 07:00 Resp 18 07/26/16 07:00 BP 154/69 07/26/16 07:00 Pulse Ox 99 07/26/16 07:00 Intake & Output 07/25/16 07/26/16 07/26/16 18:59 06:59 18:59 Other: Voiding Method Toilet # Voids 1 3 # Bowel Movements 0 - Exam General appearance: The patient is alert, oriented, in no acute distress. HET: Head is normocephalic and atraumatic. Pupils are equal and reactive. Oropharynx is clear without lesions. Neck: Supple without lymphadenopathy. Trachea midline. Heart: S1 S2. Regular rate and rhythm. Lungs: No crackles or wheezes are heard. Abdomen: Soft, nontender, nondistended with bowel sounds. No peritoneal signs. No palpable organomegaly or masses. Extremities: Normal skin color and turgor. No cyanosis, rash, ulceration, clubbing, or edema. Radial and pedal pulses are 2/4 bilaterally. Neurological: No focal deficits. Strength and sensation are grossly intact. - Labs CBC & Chem 7: 07/25/16 08:30 07/25/16 08:30 Labs: Abnormal Lab Results - Last 24 Hours (Table) 07/25/16 Range/Units 08:30 Potassium 3.3 L (3.5-5.1) mmol/L Chloride 108 H (98-107) mmol/L Glucose 188 H (74-99) mg/dL Microbiology - Last 24 Hours (Table) 07/24/16 17:13 Blood Culture - Preliminary Blood No Growth after 24 hours 07/24/16 17:00 Urine Culture - Final Urine,Clean Catch Assessment and Plan (1) Lower GI hemorrhage Narrative/Plan: Suspect ischemic colitis or self-limiting infectious colitis however diverticular bleeding cannot be entirely excluded. Status: Acute (2) Colon, diverticulosis Status: Chronic Plan: 1. Patient is requesting discharge and deferring colonoscopy evaluation at this time. Patient was advised a low residue diet for the next 2-4 days and then slowly advance as tolerated. She was advised to follow-up in the office in 3-4 weeks for reevaluation. At that time discussion for outpatient colonoscopy will be decided. Patient is agreeable with this plan of care. She was advised to return to the hospital if rectal bleeding recurs. We'll follow as needed. Discharge per medicine. Assessment and plan of care discussed with Dr. Jensen
[2016-07-26] MEDS: SODIUM CHLORIDE 0.9% 1,000 ML IV SCH ×2 (09:10→09:55)
[2016-07-26] MEDS: ISOSORBIDE MONONITRATE ER 60 MG TAB.ER.24H PO SCH (09:10)
[2016-07-26] MEDS: metroNIDAZOLE-NS PMX 500 MG in SALINE 1 100ML.BAG IVPB SCH (09:10)
[2016-07-26] MEDS: DORZOLAMIDE HCL 2% DROPS 10 ML BTL BOTH EYES SCH (09:10)
[2016-07-26] MEDS: HEPARIN SODIUM,PORCINE 5,000 UNIT/ML 1 ML VIAL SQ SCH (09:10)
[2016-07-26] MEDS: PANTOPRAZOLE 40 MG/10 ML VIAL IV SCH (09:12)
[2016-07-26] MEDS: METOPROLOL TARTRATE 25 MG TAB PO SCH (09:12)
[2016-07-26] MEDS: LISINOPRIL 20 MG TAB PO SCH (09:12)
[2016-07-26 09:13] VITALS: PULSE 70
[2016-07-26 09:31] LABS: Anion Gap 7 mmol/L; Blood Urea Nitrogen 7 mg/dL (7-17); Calcium 8.7 mg/dL (8.4-10.2); Carbon Dioxide 25 mmol/L (22-30); Chloride 110 mmol/L (98-107); Glucose 129 mg/dL (74-99); Non-African American GFR(MDRD) >60 (>60 ml/min/1.73 sqM); Potassium 3.7 mmol/L (3.5-5.1); Sodium 142 mmol/L (137-145)
[2016-07-26] MEDS: HYDROcodone/APAP 5-325MG 1 EACH TAB PO PRN (09:56)
[2016-07-26] MEDS ORDERED: POTASSIUM CHLORIDE ER 20 MEQ TAB.ER PO STA (10:12)
--- NOTE | 2016-07-27 10:31 | DS ---
DATE OF ADMISSION: 07/23/2016 DATE OF DISCHARGE: 07/26/2016 DATE OF SERVICE: 07/26/2016 FINAL DIAGNOSES: 1. Acute abdominal pain with lower gastrointestinal bleeding, possible acute colitis, extensive, improving. 2. Increased WBC. 3. Diverticulosis on the CAT scan. 4. Urinary tract infection. 5. Increased random blood sugar. 6. Increased amylase and normal lipase. 7. Obesity with body mass index of 33.8. 8. History of coronary artery disease, myocardial infarction. 9. History of fibromyalgia. 10. History gastroesophageal reflux disease. 11. History of gastrointestinal bleed. 12. Hypertension, essential. 13. Hyperlipidemia. 14. History of degenerative joint disease. 15. History of gout. 16. History of peptic ulcer disease. 17. History of coronary artery disease, stent. 18. History of claustrophobia. 19. FULL CODE. DISCHARGE DISPOSITION: The patient will be discharged in stable condition with guarded prognosis. Discharge cleared by multiple consultants. HISTORY OF PRESENT ILLNESS: This 81-year-old woman with a past medical history of multiple medical problems admitted with acute abdominal pain as well as possible colitis. Patient was treated with IV antibiotics. Gastroenterology saw the patient and the patient and family are not keen on endoscopies at this time. On exam, vitals are stable. CARDIOVASCULAR; S1 and S2, muffled. ABDOMEN: Soft, nontender. No mass palpable. NERVOUS SYSTEM: No focal deficits. DISCHARGE ADVICE: 1. Diet is cardiac, soft, bland. 2. Activity limited until followup. 3. Follow up with Dr. Smith as advised. 4. Follow up with GI, Dr. Jensen, as advised. Medications are: 1. Lipitor 20 mg q.h.s. 2. Azopt 1% both eyes daily. 3. Cipro 500 mg p.o. b.i.d. for 5 days. 4. Plavix 75 mg p.o. daily. 5. Hydrocodone 1 to 2 q.6 p.r.n. 6. Imdur ER 60 mg p.o. daily. 7. Latanoprost 1 drop both eyes daily. 8. Zestril 20 mg daily. 9. Lopressor 25 mg p.o. b.i.d. 10. Nitrostat 0.4 sublingual p.r.n. 11. Omeprazole 40 mg p.o. b.i.d. 12. Flagyl 500 mg q.8 for 5 days. 13. Requip 1 mg q.h.s. and Requip 0.5 p.o. daily. Follow up with Cardiology as recommended.
[2016-08-12] MEDS ORDERED: SUCCINYLCHOLINE CHLORIDE 100 MG/5 ML SYR IV ONE (07:24)
[2016-08-12] MEDS ORDERED: DEXAMETHASONE SOD PHOS (MDV) 100 MG/10 ML VIAL ONE (07:24)
[2016-08-12] MEDS ORDERED: ONDANSETRON 4 MG/2 ML VIAL ONE (07:24)
[2016-08-12] MEDS ORDERED: fentaNYL (PF) 50 MCG/ML 2 ML AMP ONE (07:24)
[2016-08-12] MEDS ORDERED: PROPOFOL 10 MG/ML 20 ML VIAL IV ONE (07:24)
[2016-08-12] MEDS ORDERED: MIDAZOLAM 2 MG/2 ML VIAL ONE (07:24)
[2016-08-12] MEDS ORDERED: KETOROLAC 30 MG/ML 1 ML VIAL ONE (07:24)
== END 2016-07-26 14:11 | disposition home or self-care (01) | DRG 378 ==
LOC: EC 04:47 → 4MS4W 08:58
PROVIDERS: ADMIT Hospitalist; ATTEND Hospitalist
DX: K92.2 Gastrointestinal hemorrhage, unspecified (principal); N39.0 Urinary tract infection, site not specified; I73.9 Peripheral vascular disease, unspecified; I10 Essential (primary) hypertension; K52.9 Noninfective gastroenteritis and colitis, unspecified; K21.9 Gastro-esophageal reflux disease without esophagitis; I25.10 Atherosclerotic heart disease of native coronary artery without angina pectoris; K57.30 Diverticulosis of large intestine without perforation or abscess without bleeding; K44.9 Diaphragmatic hernia without obstruction or gangrene; R74.8 Abnormal levels of other serum enzymes; T37.8X5A Adverse effect of other specified systemic anti-infectives and antiparasitics, initial encounter; D72.829 Elevated white blood cell count, unspecified; R73.09 Other abnormal glucose; L27.0 Generalized skin eruption due to drugs and medicaments taken internally; E66.9 Obesity, unspecified; R42 Dizziness and giddiness; G25.81 Restless legs syndrome; M48.00 Spinal stenosis, site unspecified; E78.5 Hyperlipidemia, unspecified; I25.2 Old myocardial infarction; M19.90 Unspecified osteoarthritis, unspecified site; H40.9 Unspecified glaucoma; M79.7 Fibromyalgia; M10.9 Gout, unspecified; F40.240 Claustrophobia; Z98.42 Cataract extraction status, left eye; Z98.41 Cataract extraction status, right eye; Z68.33 Body mass index [BMI] 33.0-33.9, adult; Z88.1 Allergy status to other antibiotic agents; Z87.891 Personal history of nicotine dependence; Z79.899 Other long term (current) drug therapy; Z87.11 Personal history of peptic ulcer disease; Z95.5 Presence of coronary angioplasty implant and graft; Z79.82 Long term (current) use of aspirin; Z79.02 Long term (current) use of antithrombotics/antiplatelets; Z80.1 Family history of malignant neoplasm of trachea, bronchus and lung; Z82.49 Family history of ischemic heart disease and other diseases of the circulatory system; Z96.1 Presence of intraocular lens; Z90.710 Acquired absence of both cervix and uterus; Z87.19 Personal history of other diseases of the digestive system; Z87.09 Personal history of other diseases of the respiratory system; Z86.19 Personal history of other infectious and parasitic diseases; Z87.448 Personal history of other diseases of urinary system; Z87.42 Personal history of other diseases of the female genital tract; Z86.79 Personal history of other diseases of the circulatory system; Z79.891 Long term (current) use of opiate analgesic; Z91.041 Radiographic dye allergy status; Z91.013 Allergy to seafood; Z88.2 Allergy status to sulfonamides; Z91.048 Other nonmedicinal substance allergy status
CPT/HCPCS: 36415; 74000; 74176; 80048; 80053; 81001; 82150; 82272; 83690; 85025; 85610; 85730; 86850; 86900; 86901; 87040; 87086; 87324; 96361; 96365; 96375; 99285

== ENCOUNTER → 2017-08-04 | Outpatient (CLI) | payer MEDICARE, BC ==
--- NOTE | 2017-08-08 08:28 | MM ---
Reason for exam: screening (asymptomatic). Last mammogram was performed 1 year and 2 months ago. History: Patient is postmenopausal. Took estrogen for 18 years beginning at age 49. Physical Findings: A clinical breast exam by your physician is recommended on an annual basis and results should be correlated with mammographic findings. MG 3D Screening Mammo W/Cad Bilateral CC and MLO view(s) were taken. Prior study comparison: June 11, 2016, bilateral MG 3d screening mammo w/cad. June 10, 2015, bilateral MG screening mammo w CAD. There are scattered fibroglandular densities. There are typically benign round and linear calcifications in both breasts. There is no discrete abnormality. ASSESSMENT: Benign, BI-RAD 2 RECOMMENDATION: Routine screening mammogram of both breasts in 1 year.
== END | disposition home or self-care (01) ==
LOC: RADMAMWWP 16:04
PROVIDERS: ATTEND Family Medicine
DX: Z12.31 Encounter for screening mammogram for malignant neoplasm of breast (principal)
CPT/HCPCS: 77063; 77067

== ENCOUNTER 2018-04-30 03:39 | Emergency (ER) | payer MEDICARE, BC ==
--- NOTE | 2018-04-30 05:29 | CT ---
EXAMINATION TYPE: CT lumbar spine wo con DATE OF EXAM: 04/30/2018 5:19 AM COMPARISON: None HISTORY: left sciatica pain; pain radiates down left leg CT DLP: 898.5 mGycm Automated exposure control for dose reduction was used. Unenhanced CT of the lumbar spine was performed. Bone and soft tissue window settings are submitted as well as coronal and sagittal reconstructions. There is degenerative disc space narrowing throughout the lumbar spine with vacuum disc and spur form ation. There is a 6 mm retrolisthesis at L2-3. There is a 6 mm anterior spondylolisthesis at L4-5. Th ere is a rudimentary S1-S2 disc. There is no compression fracture. There is multilevel hypertrophic f acet arthropathy. There is no focal bone destruction. Sacroiliac joints are intact. There is no lumba r paraspinal mass. There are renal cortical cysts. There is narrowing of the spinal canal due to the subluxation deformity and facet arthropathy. IMPRESSION: Multilevel spondylotic changes and subluxation mild deformity. No fracture. There is moderately sever e spinal stenosis at L4-5 and less severe stenosis at L5-S1 and L3-4.
[2018-04-30] MEDS ORDERED: HYDROcodone/APAP 5-325MG 1 EACH TAB PO STA (06:08)
[2018-04-30] MEDS ORDERED: predniSONE 20 MG TAB PO STA (06:08)
[2018-04-30] MEDS ORDERED: ORPHENADRINE 30 MG/ML 2 ML VIAL IM STA (06:08)
[2018-04-30] MEDS ORDERED: METHOCARBAMOL 750 MG TAB PO STA (06:31)
--- NOTE | 2018-04-30 06:53 | ED ---
Back Pain HPI - General Chief Complaint: Back Pain/Injury Stated Complaint: Leg Pain Source: patient Limitations: no limitations - History of Present Illness MD Complaint: back pain -: days(s) Similar Symptoms Previously: Yes Place: home Radiation: left leg Severity: moderate Quality: aching Consistency: constant Improves With: none Worsens With: other (Bending) Context: bending Associated Symptoms: denies other symptoms - Related Data Home Medications Medication Instructions Recorded Confirmed Brinzolamide [Azopt 1% Ophth Susp] 1 drop BOTH EYES BID 05/24/14 07/23/16 Hydrocodone/Acetaminophen [[place] 1 - 2 tab PO Q6H PRN 05/24/14 07/23/16 5-325] Latanoprost 1 drop BOTH EYES HS 05/24/14 07/23/16 Metoprolol Tartrate [Lopressor] 25 mg PO BID 05/24/14 07/23/16 Omeprazole 40 mg PO BID 05/24/14 07/23/16 rOPINIRole HCL [Requip] 1 mg PO HS 05/24/14 07/23/16 Atorvastatin [Lipitor] 20 mg PO HS 07/23/16 07/23/16 rOPINIRole HCL [Requip] 0.5 mg PO DAILY@1200 07/23/16 07/23/16 Previous Rx's Medication Instructions Recorded Clopidogrel [Plavix] 75 mg PO DAILY #30 tab 05/27/14 Isosorbide Mononitrate ER [Imdur] 60 mg PO DAILY #30 tab.er.24h 05/27/14 Nitroglycerin Sl Tabs [Nitrostat] 0.4 mg SUBLINGUAL Q5M PRN #25 tab 05/27/14 Ciprofloxacin HCl [Cipro] 500 mg PO Q12HR #10 tablet 07/26/16 Lisinopril [Zestril] 20 mg PO DAILY #30 tab 07/26/16 metroNIDAZOLE [Flagyl] 500 mg PO Q8HR #15 tab 07/26/16 Methocarbamol [Robaxin-750] 750 mg PO TID PRN #30 tablet 04/30/18 predniSONE 20 mg PO BID #8 tab 04/30/18 Allergies Allergy/AdvReac Type Severity Reaction Status Date / Time Iodinated Contrast- Oral and Allergy Unknown Verified 04/30/18 03:47 IV Dye [Iodinated Contrast Media - IV Dye] levofloxacin [From Levaquin] Allergy Rash/Hives Verified 04/30/18 03:47 shellfish derived [Shellfish] Allergy Dyspnea Verified 04/30/18 03:47 Sulfa (Sulfonamide Allergy Unknown Verified 04/30/18 03:47 Antibiotics) adhesive AdvReac Unknown Verified 04/30/18 03:47 Review of Systems ROS Statement: Those systems with pertinent positive or pertinent negative responses have been documented in the HPI. ROS Other: All systems not noted in ROS Statement are negative. Constitutional: Denies: fever, chills, weakness Respiratory: Denies: cough, dyspnea Cardiovascular: Denies: chest pain, edema Gastrointestinal: Denies: abdominal pain, nausea, vomiting, diarrhea, constipation Genitourinary: Denies: dysuria, frequency, hematuria Musculoskeletal: Reports: as per HPI, back pain Skin: Denies: rash Neurological: Denies: headache, weakness, numbness Past Medical History Past Medical History: Coronary Artery Disease (CAD), Eye Disorder, Fibromyalgia , GERD/Reflux, GI Bleed, Hyperlipidemia, Hypertension, Myocardial Infarction (NH ), Osteoarthritis (OA), Vascular Disorder Additional Past Medical History / Comment(s): LOWER GI BLEED, ANEMIA, SPINAL STENOSIS, LEAKY HEART VALVE, BILATERAL GLAUCOMA, PAST GOUT IN BILATERAL FEET, PUD, THIN SKIN PRONE TO SKIN TEARS, RLS, PAD, DIVERTICULTIS, BRONCHITIS, SINUS PROBLEMS. Last Myocardial Infarction Date:: 05/24/14 History of Any Multi-Drug Resistant Organisms: None Reported Past Surgical History: Bladder Surgery, Heart Catheterization With Stent, Hysterectomy, Orthopedic Surgery Additional Past Surgical History / Comment(s): 05/24/14 PCI WITH STENTS TO RCA/ OM1, 2006 PCI WITH STENT, CYSTOCELE/RECTOCELE, R CARPAL TUNNEL RELEASE, EGD/ COLONOSCOPIES, BACK INJECTIONS, CATARACTS REMOVED WITH LENS IMPLANTS ÁNGEL Past Anesthesia/Blood Transfusion Reactions: No Reported Reaction Additional Past Anesthesia/Blood Transfusion Reaction / Comment(s): MILD CLAUSTERPHOBIA Date of Last Stent Placement:: 05/24/14 Past Psychological History: No Psychological Hx Reported Smoking Status: Former smoker Past Alcohol Use History: None Reported Past Drug Use History: None Reported - Past Family History Father Family Medical History: Cancer Additional Family Medical History / Comment(s): LUNG CANCER WITH METS- OF THIS AT THE AGE OF 75YRS. Mother Family Medical History: Congestive Heart Failure (CHF), Myocardial Infarction ( NH) Additional Family Medical History / Comment(s): MOTHER OF A 2ND NH AT THE AGEOF 72YRS. General Exam Limitations: no limitations General appearance: alert, in no apparent distress Head exam: Present: atraumatic, normocephalic Eye exam: Present: normal appearance. Absent: scleral icterus, conjunctival injection Neck exam: Present: full ROM Respiratory exam: Present: normal lung sounds bilaterally. Absent: respiratory distress, wheezes, rales, rhonchi, stridor Cardiovascular Exam: Present: regular rate, normal rhythm, normal heart sounds. Absent: systolic murmur, diastolic murmur, rubs, gallop GI/Abdominal exam: Present: soft. Absent: distended, tenderness, guarding, rebound, rigid Extremities exam: Present: normal inspection, normal capillary refill. Absent: pedal edema, calf tenderness Back exam: Present: normal inspection. Absent: CVA tenderness (R), CVA tenderness (L), vertebral tenderness Neurological exam: Present: reflexes normal. Absent: motor sensory deficit Skin exam: Present: warm, dry, intact, normal color. Absent: rash Course Vital Signs 04/30/18 04/30/18 03:43 07:03 Temperature 98.3 F 97.1 F L Pulse Rate 62 58 L Respiratory 17 18 Rate Blood Pressure 160/81 122/65 O2 Sat by Pulse 98 98 Oximetry Disposition Clinical Impression: Sciatica Disposition: HOME SELF-CARE Condition: Fair Instructions (If sedation given, give patient instructions): Chronic Back Pain (ED) Prescriptions: Methocarbamol [Robaxin-750] 750 mg PO TID PRN #30 tablet PRN Reason: pain predniSONE 20 mg PO BID #8 tab Is patient prescribed a controlled substance at d/c from ED?: No Referrals: Gt Smith MD [Primary Care Provider] - 1-2 days
[2018-04-30 07:05] VITALS: BP 122/65; PULSE 58; RESP 18; TEMP 97.1
== END 2018-04-30 07:06 | disposition home or self-care (01) ==
LOC: EC 03:39
DX: M54.32 Sciatica, left side (principal); E78.5 Hyperlipidemia, unspecified; K21.9 Gastro-esophageal reflux disease without esophagitis; I10 Essential (primary) hypertension; I25.2 Old myocardial infarction; I25.10 Atherosclerotic heart disease of native coronary artery without angina pectoris; H40.9 Unspecified glaucoma; Z87.891 Personal history of nicotine dependence; Z79.899 Other long term (current) drug therapy; Z88.1 Allergy status to other antibiotic agents; Z88.2 Allergy status to sulfonamides; Z91.013 Allergy to seafood; Z91.041 Radiographic dye allergy status; Z91.09 Other allergy status, other than to drugs and biological substances; Z87.11 Personal history of peptic ulcer disease; Z87.19 Personal history of other diseases of the digestive system; Z98.42 Cataract extraction status, left eye; Z98.41 Cataract extraction status, right eye; Z98.890 Other specified postprocedural states; Z95.5 Presence of coronary angioplasty implant and graft
CPT/HCPCS: 72131; 99283; J7512

== ENCOUNTER → 2018-11-07 | Outpatient (CLI) | payer MEDICARE, BC ==
--- NOTE | 2018-11-09 11:42 | MM ---
Reason for exam: screening (asymptomatic). Last mammogram was performed 1 year and 3 months ago. History: Patient is postmenopausal. Took estrogen for 18 years beginning at age 49. Physical Findings: A clinical breast exam by your physician is recommended on an annual basis and results should be correlated with mammographic findings. MG 3D Screening Mammo W/Cad Bilateral CC and MLO view(s) were taken. Prior study comparison: August 04, 2017, bilateral MG 3d screening mammo w/cad. June 11, 2016, bilateral MG 3d screening mammo w/cad. There are scattered fibroglandular densities. No significant changes when compared with prior studies. ASSESSMENT: Benign, BI-RAD 2 RECOMMENDATION: Routine screening mammogram of both breasts in 1 year.
== END | disposition home or self-care (01) ==
LOC: RADMAMWWP 15:45
PROVIDERS: ATTEND Family Medicine
DX: Z12.31 Encounter for screening mammogram for malignant neoplasm of breast (principal)
CPT/HCPCS: 77063; 77067

== ENCOUNTER 2019-04-12 06:50 | Emergency (ER) | payer MEDICARE, BC ==
[2019-04-12 07:51] LABS: Glucose,Whole Blood 101 mg/dL (75-99)
[2019-04-12 08:09] LABS: Basophils # (A) 0.1 k/uL (0-0.2); Basophils % (A) 1 %; Eosinophils # (A) 0.4 k/uL (0-0.7); Eosinophils % (A) 5 %; HCT 40.8 % (34.0-46.0); HGB 13.5 gm/dL (11.4-16.0); Lymphocytes # (A) 2.8 k/uL (1.0-4.8); Lymphocytes % (A) 35 %; MCH 29.3 pg (25.0-35.0); MCV 88.8 fL (80.0-100.0); Monocytes # (A) 0.5 k/uL (0-1.0); Monocytes % (A) 7 %; Neutrophils # (A) 4.1 k/uL (1.3-7.7); Neutrophils % (A) 52 %; Platelet Count 186 k/uL (150-450); RDW 13.1 % (11.5-15.5)
--- NOTE | 2019-04-12 08:17 | CT ---
EXAMINATION TYPE: CT brain wo con DATE OF EXAM: 04/12/2019 HISTORY: Dizziness and weakness. CT DLP: 1024.4 mGycm. Automated Exposure Control for Dose Reduction was Utilized. TECHNIQUE: CT scan of the head is performed without contrast. COMPARISON: None. FINDINGS: There is no acute intracranial hemorrhage or midline shift identified. There is diffuse v entricular and sulcal prominence consistent with diffuse age-related cerebral atrophy. There is low- attenuation in the periventricular white matter consistent with chronic small vessel ischemic change. The globes are intact and the visualized sinuses are clear. IMPRESSION: No acute intracranial hemorrhage or midline shift. There is mild diffuse age-related ce rebral atrophy and chronic small vessel ischemic change noted.
[2019-04-12 08:19] LABS: Albumin 4.1 g/dL (3.5-5.0); Appearance,Urine Clear (Clear); Bilirubin,Urine Negative (Negative); Blood,Urine Negative (Negative); Calcium 9.3 mg/dL (8.4-10.2); Color,Urine Light Yellow; Glucose,Urine (UA) Negative (Negative); Ketones,Urine Negative (Negative); Leukocyte Esterase,Urine Large (Negative); Nitrite,Urine Negative (Negative); PH, Urine 6.5 (5.0-8.0); Potassium 4.6 mmol/L (3.5-5.1); Protein,Urine Negative (Negative); Specific Gravity,Urine 1.006 (1.001-1.035); Squamous Epithelial Cell,Urine 1 /hpf (0-4); Total Bilirubin 1.1 mg/dL (0.2-1.3); Total Protein 6.8 g/dL (6.3-8.2); Urobilinogen,Urine <2.0 mg/dL (<2.0); WBC,Urine 68 /hpf (0-5)
[2019-04-12 08:22] LABS: INR 0.9 (<1.2); Prothrombin Time 9.9 sec (9.0-12.0)
[2019-04-12 08:25] LABS: Partial Thromboplastin Time 21.9 sec (22.0-30.0)
--- NOTE | 2019-04-12 08:25 | XR ---
EXAMINATION TYPE: XR chest 2V DATE OF EXAM: 04/12/2019 COMPARISON: Chest x-ray May 24, 2014. HISTORY: Weakness. TECHNIQUE: Frontal and lateral views of the chest are obtained. FINDINGS: Elevation and eventration of the anterior aspect right hemidiaphragm redemonstrated. There is chronic brachial change without suspicious focal air space opacity, pleural effusion, or pneumothorax seen. The cardiac silhouette size remains within normal limits. Retrocardiac opacity consistent with moderate to large size hiatal hernia agai n seen. S-shaped scoliosis redemonstrated. IMPRESSION: Chronic changes without new suspicious acute pulmonary process.
[2019-04-12 09:09] VITALS: TEMP 97.7
--- NOTE | 2019-04-12 09:14 | ED ---
Weakness HPI - General Chief complaint: Weakness Stated complaint: Dizziness Time Seen by Provider: 04/12/19 07:07 Source: patient, EMS Mode of arrival: EMS Limitations: no limitations - History of Present Illness Initial comments: The patient is an 83-year-old female with past history of cardiac stent placement, hypertension who presents to the emergency department with reported "jittery" sensation. She reports that since Tuesday she has had the sensation of fogginess and presyncope. She does believe that her symptoms are related to a medication that she started at the end of February. She was placed on Detrol for urinary frequency. States that she does get the jittery sensation frequently when taking the medication. States that yesterday night she was lying in bed and she had a sensation as if she was going to pass out. Denies vertiginous symptoms. No chest pain or shortness of breath. Denies any unilateral numbness or weakness. No headaches or visual changes. No ripping or tearing sensation to her back. Denies abdominal pain or changes in her bowel or bladder habits. No fevers or chills. Admits to generalized weakness. She called her daughter this morning and they decided to come to the emergency room for evaluation. The patient does not take any medications for her symptoms. There are no other alleviating, precipitating or modifying factors - Related Data Home Medications Medication Instructions Recorded Confirmed Brinzolamide [Azopt 1% Ophth Susp] 1 drop BOTH EYES BID 05/24/14 04/12/19 Hydrocodone/Acetaminophen [[place] 1 - 2 tab PO BID 05/24/14 04/12/19 5-325] Latanoprost 1 drop LEFT EYE HS 05/24/14 04/12/19 Metoprolol Tartrate [Lopressor] 25 mg PO BID 05/24/14 04/12/19 Omeprazole 40 mg PO BID 05/24/14 04/12/19 Atorvastatin [Lipitor] 20 mg PO HS 07/23/16 04/12/19 Aspirin EC [Ecotrin Low Dose] 81 mg PO DAILY 04/12/19 04/12/19 Brimonidine Tartrate [Alphagan P 1 drops RIGHT EYE BID 04/12/19 04/12/19 0.1% Ophth Soln] Docusate [Colace] 100 mg PO DAILY PRN 04/12/19 04/12/19 Lisinopril [Zestril] 20 mg PO HS 04/12/19 04/12/19 Multivitamins, Thera [Multivitamin 1 tab PO DAILY 04/12/19 04/12/19 (formulary)] [place]-3 Fatty Acids/Fish Oil [Fish 1 cap PO MOWEFR 04/12/19 04/12/19 Oil 1,000 mg Softgel] Tolterodine Tartrate [Detrol LA] 4 mg PO DAILY 04/12/19 04/12/19 amLODIPine [Norvasc] 5 mg PO DAILY 04/12/19 04/12/19 Previous Rx's Medication Instructions Recorded Isosorbide Mononitrate ER [Imdur] 60 mg PO DAILY #30 tab.er.24h 05/27/14 Nitroglycerin Sl Tabs [Nitrostat] 0.4 mg SUBLINGUAL Q5M PRN #25 tab 05/27/14 Cephalexin [Keflex] 500 mg PO Q12HR #14 cap 04/12/19 Allergies Allergy/AdvReac Type Severity Reaction Status Date / Time Iodinated Contrast Media Allergy Unknown Verified 04/12/19 08:39 [Iodinated Contrast Media - IV Dye] levofloxacin [From Levaquin] Allergy Rash/Hives Verified 04/12/19 08:39 shellfish derived [Shellfish] Allergy Dyspnea Verified 04/12/19 08:39 Sulfa (Sulfonamide Allergy Unknown Verified 04/12/19 08:39 Antibiotics) adhesive AdvReac Unknown Verified 04/12/19 08:39 Review of Systems ROS Statement: Those systems with pertinent positive or pertinent negative responses have been documented in the HPI. ROS Other: All systems not noted in ROS Statement are negative. Past Medical History Past Medical History: Coronary Artery Disease (CAD), Eye Disorder, Fibromyalgia, GERD/Reflux, GI Bleed, Hyperlipidemia, Hypertension, Myocardial Infarction ([place]), Osteoarthritis ([place]), Vascular Disorder Additional Past Medical History / Comment(s): LOWER GI BLEED, ANEMIA, SPINAL STENOSIS, LEAKY HEART VALVE, BILATERAL GLAUCOMA, PAST GOUT IN BILATERAL FEET, PUD, THIN SKIN PRONE TO SKIN TEARS, RLS, PAD, DIVERTICULTIS, BRONCHITIS, SINUS PROBLEMS. Last Myocardial Infarction Date:: 05/24/14 History of Any Multi-Drug Resistant Organisms: None Reported Past Surgical History: Bladder Surgery, Heart Catheterization With Stent, Hysterectomy, Orthopedic Surgery Additional Past Surgical History / Comment(s): 05/24/14 PCI WITH STENTS TO RCA/OM1, 2006 PCI WITH STENT, CYSTOCELE/RECTOCELE, R CARPAL TUNNEL RELEASE, EGD/COLONOSCOPIES, BACK INJECTIONS, CATARACTS REMOVED WITH LENS IMPLANTS ÁNGEL Past Anesthesia/Blood Transfusion Reactions: No Reported Reaction Additional Past Anesthesia/Blood Transfusion Reaction / Comment(s): MILD CLAUSTERPHOBIA Date of Last Stent Placement:: 05/24/14 Past Psychological History: No Psychological Hx Reported Smoking Status: Former smoker Past Alcohol Use History: None Reported Past Drug Use History: None Reported - Past Family History Father Family Medical History: Cancer Additional Family Medical History / Comment(s): LUNG CANCER WITH METS- OF THIS AT THE AGE OF 75YRS. Mother Family Medical History: Congestive Heart Failure (CHF), Myocardial Infarction ([place]) Additional Family Medical History / Comment(s): MOTHER OF A 2ND [place] AT THE AGEOF 72YRS. General Exam Limitations: no limitations General appearance: alert, in no apparent distress Head exam: Present: atraumatic, normocephalic, normal inspection Eye exam: Present: normal appearance, PERRL, EOMI. Absent: scleral icterus, conjunctival injection, periorbital swelling ENT exam: Present: normal exam, mucous membranes moist Neck exam: Present: normal inspection. Absent: tenderness, meningismus, lymphadenopathy Respiratory exam: Present: normal lung sounds bilaterally. Absent: respiratory distress, wheezes, rales, rhonchi, stridor Cardiovascular Exam: Present: regular rate, normal rhythm, normal heart sounds. Absent: systolic murmur, diastolic murmur, rubs, gallop, clicks GI/Abdominal exam: Present: soft, normal bowel sounds. Absent: distended, tenderness, guarding, rebound, rigid Extremities exam: Present: normal inspection, full ROM, normal capillary refill. Absent: tenderness, pedal edema, joint swelling, calf tenderness Back exam: Present: normal inspection Neurological exam: Present: alert, oriented X3, CN II-XII intact Psychiatric exam: Present: normal affect, normal mood Skin exam: Present: warm, dry, intact, normal color. Absent: rash Course Vital Signs 04/12/19 04/12/19 04/12/19 06:51 09:08 10:29 Temperature 97.1 F L 97.7 F Pulse Rate 60 53 L 52 L Respiratory 18 18 16 Rate Blood Pressure 146/67 127/60 127/63 O2 Sat by Pulse 96 99 96 Oximetry EKG Findings - EKG Comments: EKG Findings:: EKG demonstrates a sinus bradycardia with a ventricular rate of 55. IA interval 136. QRS 86. QTC 392. No acute ST segment elevations or depressions concerning for ischemic changes. Inverted T wave in 3. Medical Decision Making - Medical Decision Making Upon arrival the patient is placed in room 11. A thorough history and physical exam is performed. She is hooked up to continuous pulse ox and cardiac monitoring. A peripheral IV is established. 12 Lead EKG is performed. I did conduct laboratory studies. CBC is unremarkable. CMP shows a creatinine of 1.07, glucose is 103. Troponin is negative. TSH 1.9. Urinalysis shows large leukocyte esterase and 68 white blood cells. I did CT the patient's brain because of her reported fogginess and confusion. Demonstrates no acute hemorrhage or midline shift. Mild diffuse age-related cerebral atrophy. Chest x-ray demonstrates chronic changes without new suspicious acute intrathoracic process. I discussed the results with the patient. I did inform her of her abnormal UA. She does report to chronic urinary tract infections and is requesting treatment at this time. I did give her a dose of Keflex. I discussed diagnosis, differential and treatment options. Patient does feel comfortable going home at this time. I informed her that she should follow-up with her bail agent. She should also call her urologist and discuss getting her medication change. Follow up with her primary care doctor in 2-4 days. She has an appointment on the . The patient has any new or worsening symptoms she should return to emergency room. Patient was in agreement with the treatment plan and discharged home in stable condition - Lab Data Result diagrams: 04/12/19 07:11 04/12/19 07:11 Lab Results 04/12/19 04/12/19 04/12/19 Range/Units 07:11 07:11 07:11 WBC 8.0 (3.8-10.6) k/uL RBC 4.60 (3.80-5.40) m/uL Hgb 13.5 (11.4-16.0) gm/dL Hct 40.8 (34.0-46.0) % MCV 88.8 (80.0-100.0) fL MCH 29.3 (25.0-35.0) pg MCHC 33.0 (31.0-37.0) g/dL RDW 13.1 (11.5-15.5) % Plt Count 186 (150-450) k/uL Neutrophils % 52 % Lymphocytes % 35 % Monocytes % 7 % Eosinophils % 5 % Basophils % 1 % Neutrophils # 4.1 (1.3-7.7) k/uL Lymphocytes # 2.8 (1.0-4.8) k/uL Monocytes # 0.5 (0-1.0) k/uL Eosinophils # 0.4 (0-0.7) k/uL Basophils # 0.1 (0-0.2) k/uL PT (9.0-12.0) sec INR (<1.2) APTT (22.0-30.0) sec Sodium 140 (137-145) mmol/L Potassium 4.6 (3.5-5.1) mmol/L Chloride 107 (98-107) mmol/L Carbon Dioxide 24 (22-30) mmol/L Anion Gap 9 mmol/L BUN 22 H (7-17) mg/dL Creatinine 1.07 H (0.52-1.04) mg/dL Est GFR (CKD-EPI)AfAm 55 (>60 ml/min/1.73 sqM) Est GFR (CKD-EPI)NonAf 48 (>60 ml/min/1.73 sqM) Glucose 103 H (74-99) mg/dL POC Glucose (mg/dL) (75-99) mg/dL POC Glu Review Specialist ID Plasma Lactic Acid Robby 1.0 (0.7-2.0) mmol/L Calcium 9.3 (8.4-10.2) mg/dL Total Bilirubin 1.1 (0.2-1.3) mg/dL AST 32 (14-36) U/L ALT 23 (4-34) U/L Alkaline Phosphatase 83 (38-126) U/L Troponin I (0.000-0.034) ng/mL Total Protein 6.8 (6.3-8.2) g/dL Albumin 4.1 (3.5-5.0) g/dL TSH 1.960 (0.465-4.680) mIU/L Urine Color Urine Appearance (Clear) Urine pH (5.0-8.0) Ur Specific [place] (1.001-1.035) Urine Protein (Negative) Urine Glucose (UA) (Negative) Urine Ketones (Negative) Urine Blood (Negative) Urine Nitrite (Negative) Urine Bilirubin (Negative) Urine Urobilinogen (<2.0) mg/dL Ur Leukocyte Esterase (Negative) Urine WBC (0-5) /hpf Ur Squamous Epith Cells (0-4) /hpf 04/12/19 04/12/19 04/12/19 Range/Units 07:11 07:11 07:11 WBC (3.8-10.6) k/uL RBC (3.80-5.40) m/uL Hgb (11.4-16.0) gm/dL Hct (34.0-46.0) % MCV (80.0-100.0) fL MCH (25.0-35.0) pg MCHC (31.0-37.0) g/dL RDW (11.5-15.5) % Plt Count (150-450) k/uL Neutrophils % % Lymphocytes % % Monocytes % % Eosinophils % % Basophils % % Neutrophils # (1.3-7.7) k/uL Lymphocytes # (1.0-4.8) k/uL Monocytes # (0-1.0) k/uL Eosinophils # (0-0.7) k/uL Basophils # (0-0.2) k/uL PT 9.9 (9.0-12.0) sec INR 0.9 (<1.2) APTT 21.9 L (22.0-30.0) sec Sodium (137-145) mmol/L Potassium (3.5-5.1) mmol/L Chloride (98-107) mmol/L Carbon Dioxide (22-30) mmol/L Anion Gap mmol/L BUN (7-17) mg/dL Creatinine (0.52-1.04) mg/dL Est GFR (CKD-EPI)AfAm (>60 ml/min/1.73 sqM) Est GFR (CKD-EPI)NonAf (>60 ml/min/1.73 sqM) Glucose (74-99) mg/dL POC Glucose (mg/dL) (75-99) mg/dL POC Glu Review Specialist ID Plasma Lactic Acid Robby (0.7-2.0) mmol/L Calcium (8.4-10.2) mg/dL Total Bilirubin (0.2-1.3) mg/dL AST (14-36) U/L ALT (4-34) U/L Alkaline Phosphatase (38-126) U/L Troponin I <0.012 (0.000-0.034) ng/mL Total Protein (6.3-8.2) g/dL Albumin (3.5-5.0) g/dL TSH (0.465-4.680) mIU/L Urine Color Light Yellow Urine Appearance Clear (Clear) Urine pH 6.5 (5.0-8.0) Ur Specific [place] 1.006 (1.001-1.035) Urine Protein Negative (Negative) Urine Glucose (UA) Negative (Negative) Urine Ketones Negative (Negative) Urine Blood Negative (Negative) Urine Nitrite Negative (Negative) Urine Bilirubin Negative (Negative) Urine Urobilinogen <2.0 (<2.0) mg/dL Ur Leukocyte Esterase Large H (Negative) Urine WBC 68 H (0-5) /hpf Ur Squamous Epith Cells 1 (0-4) /hpf 04/12/19 Range/Units 07:50 WBC (3.8-10.6) k/uL RBC (3.80-5.40) m/uL Hgb (11.4-16.0) gm/dL Hct (34.0-46.0) % MCV (80.0-100.0) fL MCH (25.0-35.0) pg MCHC (31.0-37.0) g/dL RDW (11.5-15.5) % Plt Count (150-450) k/uL Neutrophils % % Lymphocytes % % Monocytes % % Eosinophils % % Basophils % % Neutrophils # (1.3-7.7) k/uL Lymphocytes # (1.0-4.8) k/uL Monocytes # (0-1.0) k/uL Eosinophils # (0-0.7) k/uL Basophils # (0-0.2) k/uL PT (9.0-12.0) sec INR (<1.2) APTT (22.0-30.0) sec Sodium (137-145) mmol/L Potassium (3.5-5.1) mmol/L Chloride (98-107) mmol/L Carbon Dioxide (22-30) mmol/L Anion Gap mmol/L BUN (7-17) mg/dL Creatinine (0.52-1.04) mg/dL Est GFR (CKD-EPI)AfAm (>60 ml/min/1.73 sqM) Est GFR (CKD-EPI)NonAf (>60 ml/min/1.73 sqM) Glucose (74-99) mg/dL POC Glucose (mg/dL) 101 H (75-99) mg/dL POC Glu Review Specialist ID Nuria Nieves Plasma Lactic Acid Robby (0.7-2.0) mmol/L Calcium (8.4-10.2) mg/dL Total Bilirubin (0.2-1.3) mg/dL AST (14-36) U/L ALT (4-34) U/L Alkaline Phosphatase (38-126) U/L Troponin I (0.000-0.034) ng/mL Total Protein (6.3-8.2) g/dL Albumin (3.5-5.0) g/dL TSH (0.465-4.680) mIU/L Urine Color Urine Appearance (Clear) Urine pH (5.0-8.0) Ur Specific [place] (1.001-1.035) Urine Protein (Negative) Urine Glucose (UA) (Negative) Urine Ketones (Negative) Urine Blood (Negative) Urine Nitrite (Negative) Urine Bilirubin (Negative) Urine Urobilinogen (<2.0) mg/dL Ur Leukocyte Esterase (Negative) Urine WBC (0-5) /hpf Ur Squamous Epith Cells (0-4) /hpf Disposition Clinical Impression: Abnormal urinalysis, Pre-syncope Disposition: HOME SELF-CARE Condition: Stable Instructions (If sedation given, give patient instructions): Near Syncope (ED) Additional Instructions: Please follow-up with your primary care doctor in 2-4 days. I recommend that you have an ultrasound of your heart. Return to the emergency room for any new or worsening symptoms Prescriptions: Cephalexin [Keflex] 500 mg PO Q12HR #14 cap Is patient prescribed a controlled substance at d/c from ED?: No Referrals: Gt Smith MD [Primary Care Provider] - 1-2 days Time of Disposition: 10:21
[2019-04-12] MEDS ORDERED: CEPHALEXIN 500 MG CAP PO STA (10:15)
[2019-04-12 10:29] VITALS: BP 127/63; PULSE 52; RESP 16
== END 2019-04-12 10:25 | disposition home or self-care (01) ==
LOC: EC 06:50
DX: R55 Syncope and collapse (principal); R82.90 Unspecified abnormal findings in urine; R53.1 Weakness; R42 Dizziness and giddiness; G31.9 Degenerative disease of nervous system, unspecified; I25.10 Atherosclerotic heart disease of native coronary artery without angina pectoris; M79.7 Fibromyalgia; K21.9 Gastro-esophageal reflux disease without esophagitis; E78.5 Hyperlipidemia, unspecified; I10 Essential (primary) hypertension; I25.2 Old myocardial infarction; H40.9 Unspecified glaucoma; M19.90 Unspecified osteoarthritis, unspecified site; Z95.5 Presence of coronary angioplasty implant and graft; Z87.891 Personal history of nicotine dependence; Z79.891 Long term (current) use of opiate analgesic; Z79.82 Long term (current) use of aspirin; Z79.899 Other long term (current) drug therapy; Z91.041 Radiographic dye allergy status; Z88.1 Allergy status to other antibiotic agents; Z91.013 Allergy to seafood; Z88.2 Allergy status to sulfonamides; Z91.048 Other nonmedicinal substance allergy status
CPT/HCPCS: 36415; 70450; 71046; 80053; 81001; 83605; 84443; 84484; 85025; 85610; 85730; 87077; 87086; 87186; 93005; 99285

== ENCOUNTER 2020-05-10 07:10 | Observation (INO) | payer MEDICARE, BC ==
[2020-05-10] MEDS ORDERED: SODIUM CHLORIDE 0.9% 500 ML 500 ML IV STA (07:42)
[2020-05-10 07:51] LABS: Basophils % (A) 0 %; Eosinophils # (A) 0.2 k/uL (0-0.7); Eosinophils % (A) 1 %; HCT 40.5 % (34.0-46.0); HGB 13.5 gm/dL (11.4-16.0); Lymphocytes # (A) 2.1 k/uL (1.0-4.8); Lymphocytes % (A) 19 %; MCHC 33.3 g/dL (31.0-37.0); MCV 86.9 fL (80.0-100.0); Mean Platelet Volume 7.3; Monocytes # (A) 0.4 k/uL (0-1.0); Monocytes % (A) 4 %; Neutrophils # (A) 8.2 k/uL (1.3-7.7); Neutrophils % (A) 74 %; Platelet Count 210 k/uL (150-450); RBC 4.66 m/uL (3.80-5.40); RDW 13.4 % (11.5-15.5); WBC 11.1 k/uL (3.8-10.6)
--- NOTE | 2020-05-10 07:53 | ED ---
General Adult HPI - General Chief complaint: GI Bleed Stated complaint: rectal bleeding Time Seen by Provider: 05/10/20 07:15 Source: patient, RN notes reviewed, old records reviewed Mode of arrival: ambulatory Limitations: no limitations - History of Present Illness Initial comments: This is an 84-year-old female who presents emergency department with past medical history significant for GI bleed. Patient has not had any thinners. Patient states she had some lower abdominal cramping and then some bright red blood per rectum. Patient states she has no actual abdominal pain. Patient states she does have hemorrhoids but she doesn't think these are hemorrhage. Patient denies any vomiting or diarrhea. Patient states in fact recently she was a little bit more constipated. Patient denies any lightheadedness or dizziness. Patient denies chest pain or difficulty breathing. Denies any increase in leg swelling. - Related Data Home Medications Medication Instructions Recorded Confirmed Brinzolamide [Azopt 1% Ophth Susp] 1 drop LEFT EYE TID 05/24/14 05/10/20 Hydrocodone/Acetaminophen [[place] 1 tab PO BID 05/24/14 05/10/20 5-325] Latanoprost 1 drop BOTH EYES HS 05/24/14 05/10/20 Metoprolol Tartrate [Lopressor] 25 mg PO BID 05/24/14 05/10/20 Omeprazole 40 mg PO BID 05/24/14 05/10/20 Atorvastatin [Lipitor] 20 mg PO HS 07/23/16 05/10/20 Aspirin EC [Ecotrin Low Dose] 81 mg PO DAILY 04/12/19 05/10/20 Brimonidine Tartrate [Alphagan P 1 drops BOTH EYES TID 04/12/19 05/10/20 0.1% Ophth Soln] Docusate [Colace] 100 mg PO DAILY PRN 04/12/19 05/10/20 [place]-3 Fatty Acids/Fish Oil [Fish 1 cap PO Q48H 04/12/19 05/10/20 Oil 1,000 mg Softgel] amLODIPine [Norvasc] 5 mg PO DAILY 04/12/19 05/10/20 lisinopriL [Zestril] 20 mg PO HS 04/12/19 05/10/20 Carboxymethylcellulose Sodium 1 drop BOTH EYES TID 05/10/20 05/10/20 [Refresh Tears] Mirabegron [Myrbetriq] 12.5 mg PO DAILY 05/10/20 05/10/20 rOPINIRole HCL [Requip] 0.5 mg PO HS 05/10/20 05/10/20 Previous Rx's Medication Instructions Recorded Isosorbide Mononitrate ER [Imdur] 60 mg PO DAILY #30 tab.er.24h 05/27/14 Nitroglycerin Sl Tabs [Nitrostat] 0.4 mg SUBLINGUAL Q5M PRN #25 tab 05/27/14 Allergies Allergy/AdvReac Type Severity Reaction Status Date / Time ciprofloxacin [From Cipro] Allergy Rash/Hives Verified 05/10/20 09:12 Iodinated Contrast Media Allergy Unknown Verified 05/10/20 09:12 [Iodinated Contrast Media - IV Dye] levofloxacin [From Levaquin] Allergy Rash/Hives Verified 05/10/20 09:12 shellfish derived [Shellfish] Allergy Dyspnea Verified 05/10/20 09:12 Sulfa (Sulfonamide Allergy Unknown Verified 05/10/20 09:12 Antibiotics) adhesive AdvReac Unknown Verified 05/10/20 09:12 Review of Systems ROS Statement: Those systems with pertinent positive or pertinent negative responses have been documented in the HPI. ROS Other: All systems not noted in ROS Statement are negative. Past Medical History Past Medical History: Coronary Artery Disease (CAD), Eye Disorder, Fibromyalgia, GERD/Reflux, GI Bleed, Hyperlipidemia, Hypertension, Myocardial Infarction ([place]), Osteoarthritis (OA), Vascular Disorder Additional Past Medical History / Comment(s): LOWER GI BLEED, ANEMIA, SPINAL STENOSIS, LEAKY HEART VALVE, BILATERAL GLAUCOMA, PAST GOUT IN BILATERAL FEET, PUD, THIN SKIN PRONE TO SKIN TEARS, RLS, PAD, DIVERTICULTIS, BRONCHITIS, SINUS PROBLEMS. Last Myocardial Infarction Date:: 05/24/14 History of Any Multi-Drug Resistant Organisms: None Reported Past Surgical History: Bladder Surgery, Heart Catheterization With Stent, Hysterectomy, Orthopedic Surgery Additional Past Surgical History / Comment(s): 05/24/14 PCI WITH STENTS TO RCA/OM1, 2006 PCI WITH STENT, CYSTOCELE/RECTOCELE, R CARPAL TUNNEL RELEASE, EGD/COLONOSCOPIES, BACK INJECTIONS, CATARACTS REMOVED WITH LENS IMPLANTS ÁNGEL, SVS Past Anesthesia/Blood Transfusion Reactions: No Reported Reaction Additional Past Anesthesia/Blood Transfusion Reaction / Comment(s): MILD CLAUSTERPHOBIA Date of Last Stent Placement:: 05/24/14 Past Psychological History: No Psychological Hx Reported Smoking Status: Former smoker Past Alcohol Use History: None Reported Past Drug Use History: None Reported - Past Family History Father Family Medical History: Cancer Additional Family Medical History / Comment(s): LUNG CANCER WITH METS- OF THIS AT THE AGE OF 75YRS. Mother Family Medical History: Congestive Heart Failure (CHF), Myocardial Infarction ([place]) Additional Family Medical History / Comment(s): MOTHER OF A 2ND [place] AT THE AGEOF 72YRS. General Exam - General Exam Comments Initial Comments: GENERAL: Patient is well-developed and well-nourished. Patient is nontoxic and well- hydrated and is in no acute distress. ENT: Neck is soft and supple. No significant lymphadenopathy is noted. Oropharynx is clear. Moist mucous membranes. Neck has full range of motion without eliciting any pain. EYES: The sclera were anicteric and conjunctiva were pink and moist. Extraocular movements were intact and pupils were equal round and reactive to light. Eyelids were unremarkable. PULMONARY: Unlabored respirations. Good breath sounds bilaterally. No audible rales rhonchi or wheezing was noted. CARDIOVASCULAR: There is a regular rate and rhythm without any murmurs gallops or rubs. ABDOMEN: Soft and nontender with normal bowel sounds. RECTAL: On rectal exam patient had no obvious site of bleeding. SKIN: Skin is clear with no lesions or rashes and otherwise unremarkable. NEUROLOGIC: Patient is alert and oriented x3. Cranial nerves II through XII are grossly intact. Motor and sensory are also intact. Normal speech, volume and content. Symmetrical smile. MUSCULOSKELETAL: Normal extremities with adequate strength and full range of motion. No lower extremity swelling or edema. No calf tenderness. LYMPHATICS: No significant lymphadenopathy is noted PSYCHIATRIC: Normal psychiatric evaluation. Limitations: no limitations Course Vital Signs 05/10/20 07:14 Temperature 97.9 F Pulse Rate 73 Respiratory 18 Rate Blood Pressure 155/83 O2 Sat by Pulse 96 Oximetry Medical Decision Making - Medical Decision Making Patient's hemoglobin is stable. I spoke with Dr. Pulido he agreed to admit the patient admitted the patient wrote admitting orders. - Lab Data Result diagrams: 05/10/20 07:44 05/10/20 07:44 Lab Results 05/10/20 05/10/20 05/10/20 Range/Units 07:30 07:44 07:44 WBC 11.1 H (3.8-10.6) k/uL RBC 4.66 (3.80-5.40) m/uL Hgb 13.5 (11.4-16.0) gm/dL Hct 40.5 (34.0-46.0) % MCV 86.9 (80.0-100.0) fL MCH 29.0 (25.0-35.0) pg MCHC 33.3 (31.0-37.0) g/dL RDW 13.4 (11.5-15.5) % Plt Count 210 (150-450) k/uL MPV 7.3 Neutrophils % 74 % Lymphocytes % 19 % Monocytes % 4 % Eosinophils % 1 % Basophils % 0 % Neutrophils # 8.2 H (1.3-7.7) k/uL Lymphocytes # 2.1 (1.0-4.8) k/uL Monocytes # 0.4 (0-1.0) k/uL Eosinophils # 0.2 (0-0.7) k/uL Basophils # 0.0 (0-0.2) k/uL PT 9.9 (9.0-12.0) sec INR 0.9 (<1.2) APTT 21.6 L (22.0-30.0) sec Sodium (137-145) mmol/L Potassium (3.5-5.1) mmol/L Chloride (98-107) mmol/L Carbon Dioxide (22-30) mmol/L Anion Gap mmol/L BUN (7-17) mg/dL Creatinine (0.52-1.04) mg/dL Est GFR (CKD-EPI)AfAm (>60 ml/min/1.73 sqM) Est GFR (CKD-EPI)NonAf (>60 ml/min/1.73 sqM) Glucose (74-99) mg/dL Calcium (8.4-10.2) mg/dL Magnesium (1.6-2.3) mg/dL Total Bilirubin (0.2-1.3) mg/dL AST (14-36) U/L ALT (4-34) U/L Alkaline Phosphatase (38-126) U/L Troponin I (0.000-0.034) ng/mL Total Protein (6.3-8.2) g/dL Albumin (3.5-5.0) g/dL Coronavirus (PCR) (Not Detectd) Blood Type B Positive Blood Type Recheck B Pos Bld Type Recheck Status No Antibody Screen NEGATIVE Spec Expiration Date 05/13/2020 - 232905/10/20 05/10/20 05/10/20 Range/Units 07:44 07:44 08:48 WBC (3.8-10.6) k/uL RBC (3.80-5.40) m/uL Hgb (11.4-16.0) gm/dL Hct (34.0-46.0) % MCV (80.0-100.0) fL MCH (25.0-35.0) pg MCHC (31.0-37.0) g/dL RDW (11.5-15.5) % Plt Count (150-450) k/uL MPV Neutrophils % % Lymphocytes % % Monocytes % % Eosinophils % % Basophils % % Neutrophils # (1.3-7.7) k/uL Lymphocytes # (1.0-4.8) k/uL Monocytes # (0-1.0) k/uL Eosinophils # (0-0.7) k/uL Basophils # (0-0.2) k/uL PT (9.0-12.0) sec INR (<1.2) APTT (22.0-30.0) sec Sodium 138 (137-145) mmol/L Potassium 5.1 (3.5-5.1) mmol/L Chloride 106 (98-107) mmol/L Carbon Dioxide 20 L (22-30) mmol/L Anion Gap 12 mmol/L BUN 20 H (7-17) mg/dL Creatinine 1.07 H (0.52-1.04) mg/dL Est GFR (CKD-EPI)AfAm 55 (>60 ml/min/1.73 sqM) Est GFR (CKD-EPI)NonAf 48 (>60 ml/min/1.73 sqM) Glucose 110 H (74-99) mg/dL Calcium 9.8 (8.4-10.2) mg/dL Magnesium 2.0 (1.6-2.3) mg/dL Total Bilirubin 1.3 (0.2-1.3) mg/dL AST 32 (14-36) U/L ALT 28 (4-34) U/L Alkaline Phosphatase 133 H (38-126) U/L Troponin I <0.012 (0.000-0.034) ng/mL Total Protein 7.2 (6.3-8.2) g/dL Albumin 4.4 (3.5-5.0) g/dL Coronavirus (PCR) Not Detected (Not Detectd) Blood Type Blood Type Recheck Bld Type Recheck Status Antibody Screen Spec Expiration Date Disposition Clinical Impression: Gastrointestinal hemorrhage Disposition: ADMITTED IP TO THIS HOSP Referrals: Gt Smith MD [Primary Care Provider] - 1-2 days Time of Disposition: 09:44
[2020-05-10 08:13] LABS: Albumin 4.4 g/dL (3.5-5.0); Calcium 9.8 mg/dL (8.4-10.2); Potassium 5.1 mmol/L (3.5-5.1); Total Bilirubin 1.3 mg/dL (0.2-1.3); Total Protein 7.2 g/dL (6.3-8.2)
[2020-05-10 08:15] LABS: INR 0.9 (<1.2); Prothrombin Time 9.9 sec (9.0-12.0)
[2020-05-10 08:19] LABS: Partial Thromboplastin Time 21.6 sec (22.0-30.0)
[2020-05-10] MEDS ORDERED: DOCUSATE 100 MG CAP PO PRN (11:47)
[2020-05-10] MEDS ORDERED: NITROGLYCERIN SL TABS 0.4 MG TAB SUBLINGUAL PRN (11:47)
[2020-05-10] MEDS: ISOSORBIDE MONONITRATE ER 60 MG TAB.ER.24H PO SCH (12:00)
[2020-05-10 13:30] LABS: HCT 37.8 % (34.0-46.0); HGB 12.5 gm/dL (11.4-16.0); MCH 29.2 pg (25.0-35.0); MCHC 33.1 g/dL (31.0-37.0); MCV 88.2 fL (80.0-100.0); Mean Platelet Volume 7.2; Platelet Count 177 k/uL (150-450); RBC 4.28 m/uL (3.80-5.40); RDW 13.2 % (11.5-15.5)
[2020-05-10] MEDS: BRIMONIDINE TARTRATE 0.2% DROPS 5 ML BTL BOTH EYES SCH ×2 (15:10→20:34)
[2020-05-10] MEDS: ARTIFICIAL TEARS-HYPROMELLOSE DROPS 15 ML BTL BOTH EYES SCH ×2 (15:10→20:35)
[2020-05-10] MEDS: DORZOLAMIDE HCL 2% DROPS 10 ML BTL LEFT EYE SCH ×2 (15:10→20:34)
[2020-05-10] MEDS: PANTOPRAZOLE 40 MG TABLET PO SCH (15:12)
[2020-05-10] MEDS ORDERED: Mirabegron [Myrbetriq] PO SCH (16:00)
[2020-05-10] MEDS ORDERED: amLODIPine 5 MG TAB PO SCH (16:00)
[2020-05-10 20:16] LABS: HCT 37.1 % (34.0-46.0); HGB 11.9 gm/dL (11.4-16.0); MCH 29.1 pg (25.0-35.0); MCV 90.8 fL (80.0-100.0); Mean Platelet Volume 8.9; Platelet Count 105 k/uL (150-450); RBC 4.09 m/uL (3.80-5.40); RDW 13.1 % (11.5-15.5); WBC 7.4 k/uL (3.8-10.6)
[2020-05-10] MEDS: METOPROLOL TARTRATE 25 MG TAB PO SCH (20:32)
[2020-05-10] MEDS ORDERED: LATANOPROST 0.005% OPHTH DROPS 2.5 ML BTL BOTH EYES SCH (21:00)
[2020-05-10] MEDS ORDERED: lisinopriL 20 MG TAB PO SCH (21:00)
[2020-05-10] MEDS ORDERED: ATORVASTATIN 20 MG TAB PO SCH (21:00)
[2020-05-10] MEDS: HYDROcodone/APAP 5-325MG 1 EACH TAB PO PRN (22:50)
--- NOTE | 2020-05-10 23:29 | P.HPIM ---
History of Present Illness H&P Date: 05/10/20 Chief Complaint: Blood from rectum History of presenting complaint: This is a very pleasant 84-year-old patient of Dr. Smith. Chronic stable medical conditions include coronary artery with stent, fibromyalgia, GERD, hypertension, hyperlipidemia, osteoarthritis, spinal stenosis, bilateral glaucoma, gout, peptic ulcer disease, restless leg syndrome, peripheral artery disease, last: A stent was 2014. Patient had been constipated for 2 days and she took a stool softener. After good bowel movement she noticed some blood. Later on she noticed some cramping. She took some ibuprofen. The course of the day patient had intermittent bleeding per rectum. Some abdominal cramping. No fever no chills. Last colonoscopy was a few years ago by Dr. Hendricks. Patient rather rel uctant to have any colonoscopy because of her underlying coronary stent. The she's had no cardiac symptoms. Review of systems: GEN.: Tired EYES: None HEENT: None NECK: None RESPIRATORY: None CARDIOVASCULAR: None GASTROINTESTINAL: As above GENITOURINARY: None MUSCULOSKELETAL: [Joint pains LYMPHATICS: None HEMATOLOGICAL: None PSYCHIATRY: None NEUROLOGICAL: None Past medical history to include: Coronary artery with stent, fibromyalgia, GERD, hyperlipidemia, essential hypertension, osteoarthritis, spinal stenosis, bilateral glaucoma, gout, peptic ulcer disease, restless leg syndrome, peripheral artery disease, diverticulitis Social history: Lives in a trailer alone. Independent. Smoked for 26 years stopped at age of 45. 2 packs a day. No alcohol. Physical examination: VITAL SIGNS: 97.9, 73, 18, 155/83, 96% room air GENERAL:. BMI 32.2, sitting up, comfortable. EYES: Pupils equal. Conjunctiva normal. HEENT: External appearance of nose and ears normal, oral cavity grossly normal. NECK: JVD not raised; masses not palpable. HEART: First and second heart sounds are normal; no edema. LUNGS: Respiratory rate normal; clear to auscultation. ABDOMEN: Soft, nontender, liver spleen not palpable, no masses palpable. PSYCH: Alert and oriented x3; mood and affect normal. MOST skeletal: Evidence of OA NEUROLOGICAL: Cranial nerves grossly intact; no facial asymmetry, power and sensation grossly intact. LYMPHATICS: No lymph nodes palpable in the axilla and neck INVESTIGATIONS, reviewed in the clinical context: White count and hemoglobin 12.5 platelets 177 Admission labs: White count 11.1 hemoglobin 13.5 potassium 5.1 bun 20 creatinine 1.07 Coronavirus [PCR] not detected Assessment: -This is a patient with constipation for 2 days taken a laxative and after bowel movement developed bright red blood. He sees had intermittent bleeding through the day. For some abdominal cramping. Possibly diverticular bleed. Acute colitis the possibility givens cramping. -Coronary artery disease with stent. Continue aspirin. Temporarily held. On beta ale -Chronic fibromyalgia -GERD-symptoms controlled -Hyperlipidemia on fish oil and Lipitor -Essential hypertension-continue Norvasc and Zestril Lopressor -Primary osteoarthritis use averages 6 when necessary -Chronic spinal stenosis-use analgesics when necessary -Restless leg syndrome on Requip -Peripheral arterial disease, on aspirin -Dry eyes-on Refresh Tears -Urinary incontinence on Myrbetriq Care was discussed in detail with the patient. Patient rather reluctant for any colonoscopy. Given history of coronary artery disease even though symptoms are well-controlled. She also conveyed this to the humidifier maintenance worker. Dr. Gottlieb. I did discuss with Dr. Gottlieb. Depending on the clinical course an d the need for colonoscopy will take it further. In the meantime follow H&H. Patient advised not to use NSAIDs. Gentle hydration. Recheck renal function in the morning. Follow H&H Past Medical History Past Medical History: Coronary Artery Disease (CAD), Eye Disorder, Fibromyalgia, GERD/Reflux, GI Bleed, Hyperlipidemia, Hypertension, Myocardial Infarction ([place]), Osteoarthritis (OA), Vascular Disorder Additional Past Medical History / Comment(s): LOWER GI BLEED, ANEMIA, SPINAL STENOSIS, LEAKY HEART VALVE, BILATERAL GLAUCOMA, PAST GOUT IN BILATERAL FEET, PUD, THIN SKIN PRONE TO SKIN TEARS, RLS, PAD, DIVERTICULTIS, BRONCHITIS, SINUS PROBLEMS. Last Myocardial Infarction Date:: 05/24/14 History of Any Multi-Drug Resistant Organisms: None Reported Past Surgical History: Bladder Surgery, Heart Catheterization With Stent, Hysterectomy, Orthopedic Surgery Additional Past Surgical History / Comment(s): 05/24/14 PCI WITH STENTS TO RCA/OM1, 2006 PCI WITH STENT, CYSTOCELE/RECTOCELE, R CARPAL TUNNEL RELEASE, EGD/COLONOSCOPIES, BACK INJECTIONS, CATARACTS REMOVED WITH LENS IMPLANTS ÁNGEL, SVS Past Anesthesia/Blood Transfusion Reactions: No Reported Reaction Additional Past Anesthesia/Blood Transfusion Reaction / Comment(s): MILD CLAUSTERPHOBIA Date of Last Stent Placement:: 05/24/14 Past Psychological History: No Psychological Hx Reported Additional Psychological History / Comment(s): 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 SHE DRIVES. Smoking Status: Former smoker Past Alcohol Use History: None Reported Additional Past Alcohol Use History / Comment(s): STARTED SMOKING AT AGE 19- SMOKED 2 PPD QUIT AT AGE 45 Past Drug Use History: None Reported - Past Family History Father Family Medical History: Cancer Additional Family Medical History / Comment(s): LUNG CANCER WITH METS- OF THIS AT THE AGE OF 75YRS. Mother Family Medical History: Congestive Heart Failure (CHF), Myocardial Infarction ([place]) Additional Family Medical History / Comment(s): MOTHER OF A 2ND [place] AT THE AGEOF 72YRS. Medications and Allergies Home Medications Medication Instructions Recorded Confirmed Type Brinzolamide [Azopt 1% Ophth Susp] 1 drop LEFT EYE TID 05/24/14 05/10/20 History Hydrocodone/Acetaminophen [[place] 1 tab PO BID 05/24/14 05/10/20 History 5-325] Latanoprost 1 drop BOTH EYES HS 05/24/14 05/10/20 History Metoprolol Tartrate [Lopressor] 25 mg PO BID 05/24/14 05/10/20 History Omeprazole 40 mg PO BID 05/24/14 05/10/20 History Nitroglycerin Sl Tabs [Nitrostat] 0.4 mg SUBLINGUAL Q5M PRN #25 tab 05/27/14 05/10/20 Rx Atorvastatin [Lipitor] 20 mg PO HS 07/23/16 05/10/20 History Aspirin EC [Ecotrin Low Dose] 81 mg PO DAILY 04/12/19 05/10/20 History Brimonidine Tartrate [Alphagan P 1 drops BOTH EYES TID 04/12/19 05/10/20 History 0.1% Ophth Soln] Docusate [Colace] 100 mg PO DAILY PRN 04/12/19 05/10/20 History [place]-3 Fatty Acids/Fish Oil [Fish 1 cap PO Q48H 04/12/19 05/10/20 History Oil 1,000 mg Softgel] amLODIPine [Norvasc] 5 mg PO 1600 04/12/19 05/10/20 History lisinopriL [Zestril] 20 mg PO HS 04/12/19 05/10/20 History Carboxymethylcellulose Sodium 1 drop BOTH EYES TID 05/10/20 05/10/20 History [Refresh Tears] Isosorbide Mononitrate ER [Imdur] 60 mg PO 1200 05/10/20 05/10/20 History Mirabegron [Myrbetriq] 12.5 mg PO 1600 05/10/20 05/10/20 History rOPINIRole HCL [Requip] 0.5 mg PO HS 05/10/20 05/10/20 History Allergies Allergy/AdvReac Type Severity Reaction Status Date / Time ciprofloxacin [From Cipro] Allergy Rash/Hives Verified 05/10/20 09:12 Iodinated Contrast Media Allergy Unknown Verified 05/10/20 09:12 [Iodinated Contrast Media - IV Dye] levofloxacin [From Levaquin] Allergy Rash/Hives Verified 05/10/20 09:12 shellfish derived [Shellfish] Allergy Dyspnea Verified 05/10/20 09:12 Sulfa (Sulfonamide Allergy Unknown Verified 05/10/20 09:12 Antibiotics) adhesive AdvReac Unknown Verified 05/10/20 09:12 Physical Exam Vitals: Vital Signs Temp Pulse Pulse Resp BP BP Pulse Ox 05/10/20 11:06 97.8 F 63 19 160/74 97 05/10/20 07:14 97.9 F 73 18 155/83 96 Intake and Output 05/09/20 05/10/20 05/10/20 22:59 06:59 14:59 Output Total 200 Balance -200 Output: Urine 200 Other: Weight 67.585 kg Results CBC & Chem 7: 05/10/20 19:44 05/10/20 07:44 Labs: Abnormal Lab Results - Last 24 Hours (Table) 05/10/20 05/10/20 05/10/20 Range/Units 07:44 07:44 07:44 WBC 11.1 H (3.8-10.6) k/uL Neutrophils # 8.2 H (1.3-7.7) k/uL APTT 21.6 L (22.0-30.0) sec Carbon Dioxide 20 L (22-30) mmol/L BUN 20 H (7-17) mg/dL Creatinine 1.07 H (0.52-1.04) mg/dL Glucose 110 H (74-99) mg/dL Alkaline Phosphatase 133 H (38-126) U/L Thrombosis Risk Factor Assmnt - Choose All That Apply Each Risk Factor Represents 3 Points: Age 75 years or older Thrombosis Risk Factor Assessment Total Risk Factor Score: 3 Thrombosis Risk Factor Assessment Level: Moderate Risk
[2020-05-11 05:12] LABS: African American GFR (CKD) 70 (>60 ml/min/1.73 sqM); Anion Gap 12 mmol/L; Blood Urea Nitrogen 13 mg/dL (7-17); Calcium 9.5 mg/dL (8.4-10.2); Carbon Dioxide 19 mmol/L (22-30); Chloride 105 mmol/L (98-107); Glucose 94 mg/dL (74-99); Non-African American GFR(CKD) 61 (>60 ml/min/1.73 sqM); Potassium 4.5 mmol/L (3.5-5.1); Sodium 136 mmol/L (137-145)
[2020-05-11 05:16] LABS: Basophils % (A) 0 %; Eosinophils # (A) 0.3 k/uL (0-0.7); Eosinophils % (A) 3 %; HCT 38.9 % (34.0-46.0); HGB 12.8 gm/dL (11.4-16.0); Lymphocytes # (A) 2.5 k/uL (1.0-4.8); Lymphocytes % (A) 25 %; MCH 28.9 pg (25.0-35.0); MCHC 32.8 g/dL (31.0-37.0); Mean Platelet Volume 7.6; Monocytes # (A) 0.4 k/uL (0-1.0); Monocytes % (A) 4 %; Neutrophils # (A) 6.8 k/uL (1.3-7.7); Neutrophils % (A) 67 %; RBC 4.42 m/uL (3.80-5.40); RDW 13.2 % (11.5-15.5); WBC 10.2 k/uL (3.8-10.6)
[2020-05-11 05:17] LABS: Platelet Count 194 k/uL (150-450)
[2020-05-11 07:18] VITALS: BP 100/62; PULSE 58; RESP 18; TEMP 98.1
[2020-05-11] MEDS: PANTOPRAZOLE 40 MG TABLET PO SCH ×2 (09:06→09:07)
[2020-05-11] MEDS: METOPROLOL TARTRATE 25 MG TAB PO SCH (09:09)
[2020-05-11] MEDS: DORZOLAMIDE HCL 2% DROPS 10 ML BTL LEFT EYE SCH (09:10)
[2020-05-11] MEDS: ARTIFICIAL TEARS-HYPROMELLOSE DROPS 15 ML BTL BOTH EYES SCH (09:11)
[2020-05-11] MEDS: BRIMONIDINE TARTRATE 0.2% DROPS 5 ML BTL BOTH EYES SCH (09:11)
--- NOTE | 2020-05-11 09:31 | P.CONS ---
History of Present Illness - Reason for Consult Consult date: 05/10/20 GI bleed Requesting physician: Kamron Pulido - Chief Complaint Blood per rectum - History of Present Illness 84-year-old female with multiple medical comorbidities including fibromyalgia, GERD, hypertension, hyperlipidemia, osteoarthritis, gout and peripheral arterial disease who presented to the hospital with complaints of blood per rectum. The patient describes multiple episodes of bright red blood after taking a stool softener. She reports a similar presentation in 2017 however at that time she notes a fall in her hemoglobin. She reports some abdominal cramping with the episode described as in the lower abdomen. She relates her last colonoscopy was over 20 years ago. Hemoglobin stable on presentation at 13.5 with total bilirubin 0.3, alkaline phosphatase 155, AST 32 and ALT 23. She denies any further episodes today. Abdominal pain is improved. Review of Systems REVIEW OF SYSTEMS: CONSTITUTIONAL: Denies any fevers, chills, weight change or fatigue. CARDIOVASCULAR: Denies any chest pain, palpitations high or low blood pressures RESPIRATORY: Denies any shortness of breath, hemoptysis or cough. GENITOURINARY: No dysuria or hematuria. MUSCULOSKELETAL: No weakness reported. SKIN: Denies any new rashes or lesions, jaundice or pallor. PSYCHIATRIC: Denies any depression or anxiety. NEUROLOGY: Denies headache, denies any new focal deficits. EARS/NOSE/THROAT: No recent hearing change, congestion, nasal discharge or sore throat. EYES: No pain in eyes, discharge or change in vision. GASTROINTESTINAL: As per HPI. Past Medical History Past Medical History: Coronary Artery Disease (CAD), Eye Disorder, Fibromyalgia, GERD/Reflux, GI Bleed, Hyperlipidemia, Hypertension, Myocardial Infarction ([place]), Osteoarthritis (OA), Vascular Disorder Additional Past Medical History / Comment(s): LOWER GI BLEED, ANEMIA, SPINAL LAYO NOSIS, LEAKY HEART VALVE, BILATERAL GLAUCOMA, PAST GOUT IN BILATERAL FEET, PUD, THIN SKIN PRONE TO SKIN TEARS, RLS, PAD, DIVERTICULTIS, BRONCHITIS, SINUS PROBLEMS. Last Myocardial Infarction Date:: 05/24/14 History of Any Multi-Drug Resistant Organisms: None Reported Past Surgical History: Bladder Surgery, Heart Catheterization With Stent, Hysterectomy, Orthopedic Surgery Additional Past Surgical History / Comment(s): 05/24/14 PCI WITH STENTS TO RCA/OM1, 2006 PCI WITH STENT, CYSTOCELE/RECTOCELE, R CARPAL TUNNEL RELEASE, EGD/COLONOSCOPIES, BACK INJECTIONS, CATARACTS REMOVED WITH LENS IMPLANTS ÁNGEL, SVS Past Anesthesia/Blood Transfusion Reactions: No Reported Reaction Additional Past Anesthesia/Blood Transfusion Reaction / Comm: MILD CLAUSTERP HOBIA Date of Last Stent Placement:: 05/24/14 Past Psychological History: No Psychological Hx Reported Additional Psychological History / Comment(s): 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 SHE DRIVES. Smoking Status: Former smoker Past Alcohol Use History: None Reported Additional Past Alcohol Use History / Comment(s): STARTED SMOKING AT AGE 19- SMOKED 2 PPD QUIT AT AGE 45 Past Drug Use History: None Reported - Past Family History Father Family Medical History: Cancer Additional Family Medical History / Comment(s): LUNG CANCER WITH METS- OF THIS AT THE AGE OF 75YRS. Mother Family Medical History: Congestive Heart Failure (CHF), Myocardial Infarction ([place]) Additional Family Medical History / Comment(s): MOTHER OF A 2ND [place] AT THE AGEOF 72YRS. Medications and Allergies Home Medications Medication Instructions Recorded Confirmed Type Brinzolamide [Azopt 1% Ophth Susp] 1 drop LEFT EYE TID 05/24/14 05/10/20 History Hydrocodone/Acetaminophen [[place] 1 tab PO BID 05/24/14 05/10/20 History 5-325] Latanoprost 1 drop BOTH EYES HS 05/24/14 05/10/20 History Metoprolol Tartrate [Lopressor] 25 mg PO BID 05/24/14 05/10/20 History Omeprazole 40 mg PO BID 05/24/14 05/10/20 History Nitroglycerin Sl Tabs [Nitrostat] 0.4 mg SUBLINGUAL Q5M PRN #25 tab 05/27/14 05/10/20 Rx Atorvastatin [Lipitor] 20 mg PO HS 07/23/16 05/10/20 History Aspirin EC [Ecotrin Low Dose] 81 mg PO DAILY 04/12/19 05/10/20 History Brimonidine Tartrate [Alphagan P 1 drops BOTH EYES TID 04/12/19 05/10/20 History 0.1% Ophth Soln] Docusate [Colace] 100 mg PO DAILY PRN 04/12/19 05/10/20 History [place]-3 Fatty Acids/Fish Oil [Fish 1 cap PO Q48H 04/12/19 05/10/20 History Oil 1,000 mg Softgel] amLODIPine [Norvasc] 5 mg PO 1600 04/12/19 05/10/20 History lisinopriL [Zestril] 20 mg PO HS 04/12/19 05/10/20 History Carboxymethylcellulose Sodium 1 drop BOTH EYES TID 05/10/20 05/10/20 History [Refresh Tears] Isosorbide Mononitrate ER [Imdur] 60 mg PO 1200 05/10/20 05/10/20 History Mirabegron [Myrbetriq] 12.5 mg PO 1600 05/10/20 05/10/20 History rOPINIRole HCL [Requip] 0.5 mg PO HS 05/10/20 05/10/20 History Allergies Allergy/AdvReac Type Severity Reaction Status Date / Time ciprofloxacin [From Cipro] Allergy Rash/Hives Verified 05/10/20 09:12 Iodinated Contrast Media Allergy Unknown Verified 05/10/20 09:12 [Iodinated Contrast Media - IV Dye] levofloxacin [From Levaquin] Allergy Rash/Hives Verified 05/10/20 09:12 shellfish derived [Shellfish] Allergy Dyspnea Verified 05/10/20 09:12 Sulfa (Sulfonamide Allergy Unknown Verified 05/10/20 09:12 Antibiotics) adhesive AdvReac Unknown Verified 05/10/20 09:12 Physical Exam Vitals: Vital Signs Temp Pulse Pulse Resp BP BP Pulse Ox 05/10/20 11:06 97.8 F 63 19 160/74 97 05/10/20 07:14 97.9 F 73 18 155/83 96 Intake and Output 05/09/20 05/10/20 05/10/20 22:59 06:59 14:59 Output Total 200 Balance -200 Output: Urine 200 Other: Weight 67.585 kg On physical examination, patient appears comfortable in no apparent distress. HEAD: Normocephalic, atraumatic. EYES: No scleral icterus. No conjunctival injection. MOUTH: No lesions, tongue midline. NECK: Trachea midline, no gross abnormalities. CHEST: Clear to auscultation with no wheezing or rhonchi appreciated. HEART: S1-S2 appreciated. ABDOMEN: Soft, thin and nontender. Bowel sounds are positive. No organomegaly. No guarding or rigidity. EXTREMITIES: No pedal edema. SKIN: No rashes, no jaundice. NEUROLOGIC: Alert and oriented x3. No focal deficits. Results CBC & Chem 7: 05/11/20 03:56 05/11/20 03:56 Labs: Abnormal Lab Results - Last 24 Hours (Table) 05/10/20 05/10/20 05/10/20 Range/Units 07:44 07:44 07:44 WBC 11.1 H (3.8-10.6) k/uL Neutrophils # 8.2 H (1.3-7.7) k/uL APTT 21.6 L (22.0-30.0) sec Carbon Dioxide 20 L (22-30) mmol/L BUN 20 H (7-17) mg/dL Creatinine 1.07 H (0.52-1.04) mg/dL Glucose 110 H (74-99) mg/dL Alkaline Phosphatase 133 H (38-126) U/L Comments: No imaging performed. Assessment and Plan (1) Gastrointestinal hemorrhage Narrative/Plan: 84-year-old female with multiple medical comorbidities presenting with complaints of blood per rectum. She reports multiple episodes of bright red blood per rectum over this today's prior to presentation. The patient was concerned that her hemoglobin may be following up presented for further workup. She reports abdominal cramping association with her pain. Prior episode in 2017. She reports a remote history of colonoscopy. Unclear etiology, may be related to diverticular bleed, AVM, stercoral ulcer, or other etiology. Current Visit: Yes Status: Acute Code(s): K92.2 - GASTROINTESTINAL HEMORRHAGE, UNSPECIFIED SNOMED Code(s): 85806360 (2) Colon, diverticulosis Current Visit: No Status: Chronic Code(s): K57.30 - DVRTCLOS OF LG INT W/O PERFORATION OR ABSCESS W/O BLEEDING SNOMED Code(s): 671826136 Plan: Supportive care Continue to monitor hemoglobin and hematocrit and transfuse as needed Okay for liquid diet, advance to low fiber low residual as tolerated Continue to monitor stool output Hold any anticoagulation therapy for now Extensive discussion with the patient regarding endoscopic evaluation, at this time the patient would like to discuss with her primary care physician and would like to continue with conservative management at this time given her stable hemoglobin Thank you for allowing us to participate in the care of the patient we will continue to follow
[2020-05-11] MEDS: HYDROcodone/APAP 5-325MG 1 EACH TAB PO PRN (11:24)
[2020-05-11] MEDS: ISOSORBIDE MONONITRATE ER 60 MG TAB.ER.24H PO SCH (11:26)
--- NOTE | 2020-05-11 16:44 | P.PN ---
Subjective Progress Note Date: 05/11/20 Principal diagnosis: blood per rectum, lower GI bleed she was seen lying in bed. She reports no further episodes of rectum. Tolerating diet. Objective - Vital Signs Vital signs: Vital Signs Temp 98.1 F 05/11/20 07:17 Pulse 58 L 05/11/20 07:36 Resp 18 05/11/20 07:36 BP 100/62 05/11/20 07:17 Pulse Ox 96 05/11/20 07:17 Intake & Output 05/10/20 05/11/20 05/11/20 18:59 06:59 18:59 Intake Total 420 240 180 Output Total 500 200 Balance -80 240 -20 Weight 67.585 kg Intake: Oral 420 240 180 Output: Urine 500 200 Other: # Voids 3 2 # Bowel Movements 1 - Exam On physical examination, patient appears comfortable in no apparent distress. HEAD: Normocephalic, atraumatic. EYES: No scleral icterus. No conjunctival injection. MOUTH: No lesions, tongue midline. NECK: Trachea midline, no gross abnormalities. ABDOMEN: Soft, obese. Bowel sounds are positive. No organomegaly. No guarding or rigidity. EXTREMITIES: No pedal edema. SKIN: No rashes, no jaundice. NEUROLOGIC: Alert and oriented x3. No focal deficits. - Labs CBC & Chem 7: 05/11/20 03:56 05/11/20 03:56 Labs: Abnormal Lab Results - Last 24 Hours (Table) 05/10/20 05/11/20 Range/Units 19:44 03:56 Plt Count 105 L (150-450) k/uL Sodium 136 L (137-145) mmol/L Carbon Dioxide 19 L (22-30) mmol/L Assessment and Plan (1) Gastrointestinal hemorrhage Narrative/Plan: 84-year-old female with multiple medical comorbidities presenting with complaints of blood per rectum. She reports multiple episodes of bright red blood per rectum over this today's prior to presentation. The patient was concerned that her hemoglobin may be following up presented for further workup. She reports abdominal cramping association with her pain. Prior episode in 2017. She reports a remote history of colonoscopy. Unclear etiology, may be related to diverticular bleed, AVM, stercoral ulcer, or other etiology. No further bleeding today. Patient tolerating diet. Hemoglobin remained stable. Status: Acute Code(s): K92.2 - GASTROINTESTINAL HEMORRHAGE, UNSPECIFIED SNOMED Code(s): 04269265 (2) Colon, diverticulosis Status: Chronic Code(s): K57.30 - DVRTCLOS OF LG INT W/O PERFORATION OR ABSCESS W/O BLEEDING SNOMED Code(s): 249597583 Plan: Supportive care Continue to monitor hemoglobin and hematocrit and transfuse as needed Okay for liquid diet, advance to low fiber low residual as tolerated Continue to monitor stool output Hold any anticoagulation therapy for now Extensive discussion with the patient regarding endoscopic evaluation, at this time the patient would like to discuss with her primary care physician and would like to continue with conservative management at this time given her stable hemoglobin Thank you for allowing us to participate in the care of the patient we will con demetriaue to follow
--- NOTE | 2020-05-11 21:53 | P.DS ---
Providers Date of admission: 05/10/20 10:36 Expected date of discharge: 05/11/20 Attending physician: Kamron Pulido Consults: 05/10/20 10:34 Consult Physician Urgent Consulting Provider: Zohaib Kenny Reason/Comments: GI bleed Do you want consulting provider notified?: Yes Primary care physician: [facility] Course: Chief Complaint: Blood from rectum History of presenting complaint: This is a very pleasant 84-year-old patient of Dr. Smith. Chronic stable medical conditions include coronary artery with stent, fibromyalgia, GERD, hypertension, hyperlipidemia, osteoarthritis, spinal stenosis, bilateral glaucoma, gout, peptic ulcer disease, restless leg syndrome, peripheral artery disease, last: A stent was 2014. Patient had been constipated for 2 days and she took a stool softener. After good bowel movement she noticed some blood. Later on she noticed some cramping. She took some ibuprofen. The course of the day patient had intermittent bleeding per rectum. Some abdominal cramping. No fever no chills. Last colonoscopy was a few years ago by Dr. Hendricks. Patient rather reluctant to have any colonoscopy because of her underlying coronary stent. The she's had no cardiac symptoms. Patient has been reluctant to have any endoscopy. She told us to the Dr. Gottlieb and myself. Today-tolerating a diet. No abdominal pain. No further bleeding. Feels well. Had a lengthy discussion with the patient. She will return to the hospital if the symptoms were to come back and she has bleeding. And then possibly have endoscopy. Also discussed with patient's granddaughter Mary. Questions were answered. Blood pressures been running slightly on the lower side. Dose of lisinopril cut back to 10 mg at night. Discussion and discharge planning more than 35 minutes Consultation: Dr. Gottlieb from GI Past medical history to include: Coronary artery with stent, fibromyalgia, GERD, hyperlipidemia, essential hype rtension, osteoarthritis, spinal stenosis, bilateral glaucoma, gout, peptic ulcer disease, restless leg syndrome, peripheral artery disease, diverticulitis Social history: Lives in a trailer alone. Independent. Smoked for 26 years stopped at age of 45. 2 packs a day. No alcohol. Physical examination: VITAL SIGNS: 98.1, 58, 18, 100/62, 96% room air GENERAL:. BMI 32.2, sitting up, comfortable. EYES: Pupils equal. Conjunctiva normal. HEENT: External appearance of nose and ears normal, oral cavity grossly normal. NECK: JVD not raised; masses not palpable. HEART: First and second heart sounds are normal; no edema. LUNGS: Respiratory rate normal; clear to auscultation. ABDOMEN: Soft, nontender, liver spleen not palpable, no masses palpable. PSYCH: Alert and oriented x3; mood and affect normal. Musculoskeletal: Evidence of OA INVESTIGATIONS, reviewed in the clinical context: Today-hemoglobin 12.8 creatinine 0.87 White count and hemoglobin 12.5 platelets 177 Admission labs: White count 11.1 hemoglobin 13.5 potassium 5.1 bun 20 creatinine 1.07 Coronavirus [PCR] not detected Assessment: -Possible acute diverticular/colonic bleed self-limiting -Coronary artery disease with stent. Continue aspirin. Temporarily held. On beta ale -Chronic fibromyalgia -GERD-symptoms controlled -Hyperlipidemia on fish oil and Lipitor -Essential hypertension-continue Norvasc and Zestril Lopressor -Primary osteoarthritis use averages 6 when necessary -Chronic spinal stenosis-use analgesics when necessary -Restless leg syndrome on Requip -Peripheral arterial disease, on aspirin -Dry eyes-on Refresh Tears -Urinary incontinence on Myrbetriq Disposition: Home Patient Condition at Discharge: Stable Plan - Discharge Summary New Discharge Prescriptions: New Psyllium Husk (with Sugar) [Metamucil Powder] 0 gm PO DAILY #30 gm Continue Hydrocodone/Acetaminophen [[place] 5-325] 1 tab PO BID Omeprazole 40 mg PO BID Latanoprost 1 drop BOTH EYES HS Brinzolamide [Azopt 1% Ophth Susp] 1 drop LEFT EYE TID Metoprolol Tartrate [Lopressor] 25 mg PO BID Nitroglycerin Sl Tabs [Nitrostat] 0.4 mg SUBLINGUAL Q5M PRN #25 tab PRN Reason: Chest Pain Atorvastatin [Lipitor] 20 mg PO HS Brimonidine Tartrate [Alphagan P 0.1% Ophth Soln] 1 drops BOTH EYES TID [place]-3 Fatty Acids/Fish Oil [Fish Oil 1,000 mg Softgel] 1 cap PO Q48H amLODIPine [Norvasc] 5 mg PO 1600 Aspirin EC [Ecotrin Low Dose] 81 mg PO DAILY Carboxymethylcellulose Sodium [Refresh Tears] 1 drop BOTH EYES TID Mirabegron [Myrbetriq] 12.5 mg PO 1600 rOPINIRole HCL [Requip] 0.5 mg PO HS Isosorbide Mononitrate ER [Imdur] 60 mg PO 1200 Changed lisinopriL [Zestril] 10 mg PO HS #0 Discontinued Docusate [Colace] 100 mg PO DAILY PRN PRN Reason: Constipation Discharge Medication List Brinzolamide [Azopt 1% Ophth Susp] 1 drop LEFT EYE TID 05/24/14 [History] Hydrocodone/Acetaminophen [[place] 5-325] 1 tab PO BID 05/24/14 [History] Latanoprost 1 drop BOTH EYES HS 05/24/14 [History] Metoprolol Tartrate [Lopressor] 25 mg PO BID 05/24/14 [History] Omeprazole 40 mg PO BID 05/24/14 [History] Nitroglycerin Sl Tabs [Nitrostat] 0.4 mg SUBLINGUAL Q5M PRN #25 tab 05/27/14 [Rx] Atorvastatin [Lipitor] 20 mg PO HS 07/23/16 [History] Aspirin EC [Ecotrin Low Dose] 81 mg PO DAILY 04/12/19 [History] Brimonidine Tartrate [Alphagan P 0.1% Ophth Soln] 1 drops BOTH EYES TID 04/12/19 [History] [place]-3 Fatty Acids/Fish Oil [Fish Oil 1,000 mg Softgel] 1 cap PO Q48H 04/12/19 [History] amLODIPine [Norvasc] 5 mg PO 1600 04/12/19 [History] Carboxymethylcellulose Sodium [Refresh Tears] 1 drop BOTH EYES TID 05/10/20 [Hi story] Isosorbide Mononitrate ER [Imdur] 60 mg PO 1200 05/10/20 [History] Mirabegron [Myrbetriq] 12.5 mg PO 1600 05/10/20 [History] rOPINIRole HCL [Requip] 0.5 mg PO HS 05/10/20 [History] Psyllium Husk (with Sugar) [Metamucil Powder] 0 gm PO DAILY #30 gm 05/11/20 [Rx] lisinopriL [Zestril] 10 mg PO HS #0 05/11/20 [Rx] Follow up Appointment(s)/Referral(s): Gt Smith MD [Primary Care Provider] - 1-2 days Zohaib Kenny MD [STAFF PHYSICIAN] - 2 Weeks
== END 2020-05-11 13:45 | disposition home or self-care (01) ==
LOC: EC 07:10 → 6NMEDSUR 10:36
PROVIDERS: ADMIT Hospitalist; ATTEND Hospitalist
DX: K62.5 Hemorrhage of anus and rectum (principal); K52.9 Noninfective gastroenteritis and colitis, unspecified; K59.00 Constipation, unspecified; K64.9 Unspecified hemorrhoids; I25.10 Atherosclerotic heart disease of native coronary artery without angina pectoris; M79.7 Fibromyalgia; K21.9 Gastro-esophageal reflux disease without esophagitis; E78.5 Hyperlipidemia, unspecified; I10 Essential (primary) hypertension; I25.2 Old myocardial infarction; D64.9 Anemia, unspecified; M10.9 Gout, unspecified; G25.81 Restless legs syndrome; I73.9 Peripheral vascular disease, unspecified; H40.9 Unspecified glaucoma; M48.00 Spinal stenosis, site unspecified; K57.90 Diverticulosis of intestine, part unspecified, without perforation or abscess without bleeding; M25.50 Pain in unspecified joint; K27.9 Peptic ulcer, site unspecified, unspecified as acute or chronic, without hemorrhage or perforation; R32 Unspecified urinary incontinence; H04.123 Dry eye syndrome of bilateral lacrimal glands; M19.91 Primary osteoarthritis, unspecified site; Z79.899 Other long term (current) drug therapy; Z79.891 Long term (current) use of opiate analgesic; Z79.82 Long term (current) use of aspirin; Z88.1 Allergy status to other antibiotic agents; Z91.041 Radiographic dye allergy status; Z91.013 Allergy to seafood; Z88.2 Allergy status to sulfonamides; Z91.048 Other nonmedicinal substance allergy status; Z87.19 Personal history of other diseases of the digestive system; Z87.09 Personal history of other diseases of the respiratory system; Z95.5 Presence of coronary angioplasty implant and graft; Z87.891 Personal history of nicotine dependence; Z80.1 Family history of malignant neoplasm of trachea, bronchus and lung; Z82.49 Family history of ischemic heart disease and other diseases of the circulatory system; Z20.822 Contact with and (suspected) exposure to COVID-19; Z90.710 Acquired absence of both cervix and uterus; Z96.1 Presence of intraocular lens
CPT/HCPCS: 96360; 99285; 36415; 86900; 86901; 80053; 80048; 83735; 84484; 85025 ×2; 85027; 85610; 85730; 86850; 87635; G0378 ×2

== ENCOUNTER → 2022-12-21 | Outpatient (CLI) | payer MEDICARE, BC ==
--- NOTE | 2022-12-21 12:29 | XR ---
EXAMINATION TYPE: XR Hip RT and AP Pelvis DATE OF EXAM: 12/21/2022 COMPARISON: None HISTORY: Right hip pain TECHNIQUE: AP pelvis and two-view right hip FINDINGS: Femoral head articulates with the acetabulum. Joint space is preserved. No acute fracture o r dislocation is evident. Sacroiliac joint degenerative changes are noted. Symphysis pubis is normal. Normal bowel gas is prese nt. IMPRESSION: 1. No acute osseous abnormality right hip
== END | disposition home or self-care (01) ==
LOC: RADXRYALE 09:46
PROVIDERS: ATTEND Physician Assistant
DX: M25.551 Pain in right hip (principal)
CPT/HCPCS: 73502

== ENCOUNTER → 2023-10-25 | Outpatient (CLI) | payer MEDICARE, BC ==
--- NOTE | 2023-10-25 11:01 | XR ---
EXAMINATION TYPE: XR ribs LT w pa chest xray DATE OF EXAM: 10/25/2023 COMPARISON: 04/22/2019 HISTORY: Pain TECHNIQUE: Single view of the chest 4 views of the ribs are submitted. FINDINGS: The lungs are clear. No Evidence for pneumothorax. No evidence for focal contusion. Medi astinal structures are midline. Evaluation of the ribs fails to demonstrate evidence for displaced r ib fracture or secondary sign of rib fracture. Fixed hiatal hernia. IMPRESSION: Negative study
--- NOTE | 2023-10-25 16:57 | XR ---
EXAMINATION TYPE: XR Hip Complete LT DATE OF EXAM: 10/25/2023 CLINICAL HISTORY: pain TECHNIQUE: AP and frogleg views of the left hip are obtained. COMPARISON: 09/11/2015 FINDINGS: There is no acute fracture/dislocation evident. The joint space appears mildly narrowed. The overlying soft tissue appears unremarkable. IMPRESSION: 1. There is no acute fracture or dislocation.ICD 10 NO FRACTURE, INITIAL EVALUATION
== END | disposition home or self-care (01) ==
LOC: RADXRYALE 08:36
PROVIDERS: ATTEND Nurse Practitioner Family
DX: M25.552 Pain in left hip (principal); R07.81 Pleurodynia
CPT/HCPCS: 73502